=== PATIENT | female | born 1990 | race African-American/Black ===

== ENCOUNTER 2016-05-27 13:04 | Emergency (ER) | payer MEDICAID ==
--- NOTE | 2016-05-27 13:17 | ER Document Report ---
ED Medical Screen (RME) - General Stated Complaint: SHAKY,WEAKNESS Notes: 1.5 hours ago sudden onset weakness, shaky, light headed. denies previous h/o. tolerating PO. urinated this AM, last BM two days ago, usually goes twice weekly denies pain I have greeted and performed a rapid initial assessment of this patient. A comprehensive ED assessment and evaluation of the patient, analysis of test results and completion of the medical decision making process will be conducted by additional ED providers. TRAVEL OUTSIDE OF THE [place] IN LAST 30 DAYS: No - Related Data Allergies/Adverse Reactions: orange Allergy (Severe, Verified 05/27/16 13:15) No Known Drug Allergies Allergy (Verified 05/27/16 13:14) Physical Exam - Vital signs Vitals: Temp Pulse Resp BP Pulse Ox 98.0 F 85 16 125/78 100 05/27/16 13:14 05/27/16 13:14 05/27/16 13:14 05/27/16 13:14 05/27/16 13:14 Course - Vital Signs Vital signs: Temp Pulse Resp BP Pulse Ox 98.0 F 85 16 125/78 100 05/27/16 13:14 05/27/16 13:14 05/27/16 13:14 05/27/16 13:14 05/27/16 13:14
[2016-05-27] MEDS ORDERED: MECLIZINE HCL 25 MG TABLET PO ONE (13:19)
[2016-05-27 13:48] VITALS: BP 127/65
[2016-05-27 14:44] LABS: APPEARANCE,URINE CLEAR; BILIRUBIN,URINE NEGATIVE (NEGATIVE); GLUCOSE, URINE NEGATIVE (NEGATIVE); KETONES,URINE NEGATIVE (NEGATIVE); LEUKOCYTE ESTERASE,URINE NEGATIVE (NEGATIVE); NITRITE,URINE NEGATIVE (NEGATIVE); PROTEIN,URINE NEGATIVE (NEGATIVE); URINE SPECIFIC GRAVITY 1.002; UROBILINOGEN,URINE NEGATIVE mg/dL (<2.0)
--- NOTE | 2016-05-27 14:49 | ER Document Report ---
ED General - General Chief Complaint: Dizziness Stated Complaint: SHAKY,WEAKNESS Mode of Arrival: Ambulatory Information source: Patient Notes: Patient is a 25 yo female who presents with 3 day history of sudden onset, dizziness, light-headed and "shaky" feeling. She describes the dizziness as "spinning" that is worse with head movement to the left. She has no prior history of this, denies any changes in vision, syncope, headache, ear pain, abnormal bleeding, chest pain, SOB, n/v/d or urinary symptoms. She is 2 months post- and was prescribed reglan 3 days ago by her OBGYN to aid in producing breast milk. She states the symptoms started after taking the first dose. TRAVEL OUTSIDE OF THE [place] IN LAST 30 DAYS: No - Related Data Allergies/Adverse Reactions: orange Allergy (Severe, Verified 05/27/16 13:15) No Known Drug Allergies Allergy (Verified 05/27/16 13:14) Past Medical History - Social History Smoking Status: Never Smoker Family History: Reviewed & Not Pertinent Patient has suicidal ideation: No Patient has homicidal ideation: No Renal/ Medical History: Denies: Hx Peritoneal Dialysis Review of Systems - Review of Systems Constitutional: See HPI EENT: No symptoms reported Cardiovascular: No symptoms reported Respiratory: No symptoms reported Gastrointestinal: No symptoms reported Genitourinary: No symptoms reported Female Genitourinary: No symptoms reported Musculoskeletal: No symptoms reported Skin: No symptoms reported Hematologic/Lymphatic: See HPI Neurological/Psychological: See HPI Physical Exam - Vital signs Vitals: Temp Pulse Resp BP Pulse Ox 98.0 F 85 16 125/78 100 05/27/16 13:14 05/27/16 13:14 05/27/16 13:14 05/27/16 13:14 05/27/16 13:14 Interpretation: Normal - Notes Notes: PHYSICAL EXAM: CONSTITUTIONAL: Alert and oriented, well-appearing and in no acute distress. Appears comfortable. Sitting upright in exam bed without difficulty. HENT: Normocephalic, atraumatic. Ear canals without erythema or foreign body, TMs pearly edmond with good bony landmarks. Nares clear without erythema, septal hematoma or deviation, airway patent. Oropharynx clear without erythema, tonsilar exudate or malocclusion. Trachea midline. Uvula midline. Moist mucous membranes. EYES: Pupils equal round and reactive to light, EOM intact. Sclera anicteric, conjunctiva are normal. No entrapment. NECK: supple without lymphadenopathy. ROM intact. HEART: Regular rate and rhythm without murmurs. LUNGS: CTAB and equal. No wheezes, rales or rhonchi. GI: Normactive bowel sounds. Nontender, non-distended. No organomegaly. no CVAT. EXTREMITIES: Normal range of motion, no pitting edema. No cyanosis. Cap Refill < 3 seconds. NEURO: Cranial nerves grossly intact. Normal sensory/motor exams. SKIN: Warm and dry. Normal turgor. No rashes or lesions noted. Course - Re-evaluation Re-evalutation: 05/27/16 14:47 Patient seen and examined. She was given dose of meclizine in triage and states symptoms have completely resolved with this medication. She is currently asymptomatic and feeling well. Reglan has high occurrence of dizziness as a side effect, patient denies any tardive dyskinesia or muscle rigidity. Advised patient to discontinue use of reglan, discuss alternatives with OBGYN. Discharged home in stable condition, follow-up with OBGYN/PMD. Will provide script for meclizine to take as needed. - Vital Signs Vital signs: Temp Pulse Resp BP Pulse Ox 98.0 F 73 16 127/65 H 100 05/27/16 13:14 05/27/16 13:46 05/27/16 13:14 05/27/16 13:46 05/27/16 13:14 - Laboratory Laboratory results interpreted by me: 05/27/16 14:20 Urine Blood MODERATE H Noted mod blood in urine - patient is currently on period. Discharge - Discharge Clinical Impression: Medication adverse effect, Dizziness Condition: Stable Disposition: HOME, SELF-CARE Instructions: Dizziness ([facility]), Meclizine ([facility]) Additional Instructions: FOLLOW-UP CARE: If you have been referred to a physician for follow-up care, call the physician s office for an appointment as you were instructed or within the next two days. If you experience worsening or a significant change in your symptoms, notify the physician immediately or return to the Emergency Department at any time for re-evaluation. Prescriptions: Meclizine HCl [Antivert 25 mg Tablet] 25 mg PO TID PRN #21 tablet PRN Reason: Referrals: SOUSA,KIRSTIN, MD [Primary Care Provider] - Follow up as needed
== END 2016-05-27 15:02 | disposition home or self-care (01) ==
LOC: ER 13:04
DX: R42 Dizziness and giddiness (principal); T45.0X5A Adverse effect of antiallergic and antiemetic drugs, initial encounter; Z91.018 Allergy to other foods
CPT/HCPCS: 81001; 81025; 99284

== ENCOUNTER 2016-10-24 11:39 | Emergency (ER) | payer MEDICAID ==
[2016-10-24 11:44] VITALS: BP 126/88
[2016-10-24] MEDS ORDERED: AMOXICILLIN TRIHYDRATE 500 MG CAPSULE PO ONE (12:27)
--- NOTE | 2016-10-24 12:33 | ER Document Report ---
ED General - General Chief Complaint: Headache Stated Complaint: HEADACHE/WEAKNESS Time Seen by Provider: 10/24/16 12:23 Mode of Arrival: Ambulatory Information source: Patient Notes: 25-year-old female presents with complaints of right earache headache, patient denies any nuchal rigidity, she admits to fevers and chills nausea vomiting Patient denies a sore throat, admits to body aches TRAVEL OUTSIDE OF THE [place] IN LAST 30 DAYS: No - HPI Onset: Other Onset/Duration: Persistent Quality of pain: Achy Severity: Mild Pain Level: 1 Associated symptoms: Earache, Fever, Headache, Nausea, Vomiting Exacerbated by: Denies Relieved by: Denies Similar symptoms previously: No Recently seen / treated by doctor: No - Related Data Allergies/Adverse Reactions: orange Allergy (Severe, Verified 05/27/16 13:15) No Known Drug Allergies Allergy (Verified 05/27/16 13:14) Past Medical History - Social History Smoking Status: Former Smoker Cigarette use (# per day): No Chew tobacco use (# tins/day): No Smoking Education Provided: No Frequency of alcohol use: None Drug Abuse: None Family History: Reviewed & Not Pertinent Patient has suicidal ideation: No Patient has homicidal ideation: No Renal/ Medical History: Denies: Hx Peritoneal Dialysis Review of Systems - Review of Systems Notes: REVIEW OF SYSTEMS: CONSTITUTIONAL : admits to fever EENT: admits to ear ache CARDIOVASCULAR: Denies chest pain. Denies palpitations or racing or irregular heart beat. Denies ankle edema. RESPIRATORY: Denies cough, cold, or chest congestion. Denies shortness of breath, difficulty breathing, or wheezing. GASTROINTESTINAL: admits ot nausea vomtiing GENITOURINARY: Denies difficulty urinating, painful urination, burning, frequency, blood in urine, or discharge. FEMALE GENITOURINARY: Denies vaginal bleeding, heavy or abnormal periods, irregular periods. Denies vaginal discharge or odor. MUSCULOSKELETAL: Denies back or neck pain or stiffness. Denies joint pain or swelling. SKIN: Denies rash, lesions or sores. HEMATOLOGIC : Denies easy bruising or bleeding. LYMPHATIC: Denies swollen, enlarged glands. NEUROLOGICAL: admits ot headache PSYCHIATRIC: Denies anxiety or stress. Denies depression, suicidal ideation, or homicidal ideation. ALL OTHER SYSTEMS REVIEWED AND NEGATIVE. PHYSICAL EXAMINATION: GENERAL: Well-appearing, well-nourished and in no acute distress. HEAD: Atraumatic, normocephalic. EYES: Pupils equal round and reactive to light, extraocular movements intact, conjunctiva are normal. ENT: right ear pustular, no mastoidits, NECK: Normal range of motion, supple without lymphadenopathy LUNGS: Breath sounds clear to auscultation bilaterally and equal. No wheezes rales or rhonchi. HEART: Regular rate and rhythm without murmurs ABDOMEN: Soft, nontender, nondistended abdomen. No guarding, no rebound. No masses appreciated. Female : deferred Musculoskeletal: Normal range of motion, no pitting or edema. No cyanosis. NEUROLOGICAL: Cranial nerves grossly intact. Normal speech, normal gait. Normal sensory, motor exams PSYCH: Normal mood, normal affect. SKIN: Warm, Dry, normal turgor, no rashes or lesions noted. Dictation was performed using [employer] voice recognition software Physical Exam - Vital signs Vitals: Temp Pulse Resp BP Pulse Ox 98.4 F 92 18 126/88 H 98 10/24/16 11:43 10/24/16 11:43 10/24/16 11:43 10/24/16 11:43 10/24/16 11:43 Course - Re-evaluation Re-evalutation: 10/24/16 12:31 Physical examination is consistent with otitis media with which would explain patient's symptoms and presentation. Patient otherwise looks well in no distress. I will treat the patient with antibiotics very close return precautions, patient has no meningeal signs After performing a Medical Screening Examination, I estimate there is LOW risk for ACUTE CORONARY SYNDROME, RESPIRATORY FAILURE, SEPSIS OR MENINGITIS, thus I consider the discharge disposition reasonable. I have reevaluated this patient multiple times and no significant life threatening changes are noted. The patient and I have discussed the diagnosis and risks, and we agree with discharging home with close follow-up. We also discussed returning to the Emergency Department immediately if new or worsening symptoms occur. We have discussed the symptoms which are most concerning (e.g., changing or worsening pain, trouble swallowing or breathing, neck stiffness, fever) that necessitate immediate return. - Vital Signs Vital signs: Temp Pulse Resp BP Pulse Ox 98.4 F 92 18 126/88 H 98 10/24/16 11:43 10/24/16 11:43 10/24/16 11:43 10/24/16 11:43 10/24/16 11:43 Discharge - Discharge Clinical Impression: Otitis media Qualifiers: Otitis media type: suppurative Chronicity: acute Laterality: right Qualified Code(s): H66.001 - Acute suppurative otitis media without spontaneous rupture of ear drum, right ear Fever Qualifiers: Fever type: unspecified Qualified Code(s): R50.9 - Fever, unspecified Headache Qualifiers: Headache type: unspecified Headache chronicity pattern: acute headache Intractability: not intractable Qualified Code(s): R51 - Headache Condition: Stable Disposition: HOME, SELF-CARE Instructions: Headache ([facility]) Additional Instructions: Follow up with your physician tomorrow for further care or return to the ED IMMEDIATELY if symptoms worsen or new concerns occur. If you cannot afford to follow up with your primary care physician a list of low cost clinics have been provided at the end of your discharge papers as well. Prescriptions: Amoxicillin 875 mg PO BID #20 tablet Promethazine HCl [Phenergan 25 mg Tablet] 1 - 2 tab PO Q6H PRN #15 tablet PRN Reason:
== END 2016-10-24 12:43 | disposition home or self-care (01) ==
LOC: ER 11:39
DX: H66.001 Acute suppurative otitis media without spontaneous rupture of ear drum, right ear (principal); R51 Headache; R50.9 Fever, unspecified; R53.1 Weakness; H92.01 Otalgia, right ear; Z87.891 Personal history of nicotine dependence
CPT/HCPCS: 99283

== ENCOUNTER 2016-10-26 16:31 | Emergency (ER) | payer SELFPAY ==
[2016-10-26] MEDS ORDERED: NORMAL SALINE 1000 ML 1,000 ML IV ONE (18:31)
[2016-10-26] MEDS ORDERED: KETOROLAC TROMETHAMINE INJ/PF 30 MG/1 ML SDV IV ONE (18:32)
[2016-10-26] MEDS ORDERED: METOCLOPRAMIDE HCL INJ/PF 10 MG/2 ML SDV IV ONE (18:33)
[2016-10-26] MEDS ORDERED: DIPHENHYDRAMINE HCL 50 MG/ML VIAL IV ONE (18:33)
--- NOTE | 2016-10-26 18:40 | ER Document Report ---
ED General - General Chief Complaint: Headache Stated Complaint: BODY ACHES/POSSIBLE FEVER Time Seen by Provider: 10/26/16 18:12 Notes: 25 yo female c/o fever, chills, vomiting, headache, body ache, n/v, coughing x 3 days. pt was seen in ED 2 days ago for same. Tx for right OM, not improving. pt denies any recent travel, tick bites. works in [employer], ? exposure to sick contacts TRAVEL OUTSIDE OF THE [place] IN LAST 30 DAYS: No - HPI Onset/Duration: Gradual, Persistent, Worse Quality of pain: Achy Pain Level: 4 Associated symptoms: Body/muscle aches, Chills, Nonproductive cough, Earache, Headache, Nausea. denies: Vomiting, Shortness of breath, Sore throat Exacerbated by: Denies Relieved by: Denies Similar symptoms previously: Yes Recently seen / treated by doctor: Yes - ED - Related Data Allergies/Adverse Reactions: orange Allergy (Severe, Verified 10/26/16 16:55) No Known Drug Allergies Allergy (Verified 10/26/16 16:55) Past Medical History - General Information source: Patient - Social History Smoking Status: Never Smoker Frequency of alcohol use: None Drug Abuse: None Lives with: Family Family History: Reviewed & Not Pertinent Patient has suicidal ideation: No Patient has homicidal ideation: No - Medical History Medical History: Negative Renal/ Medical History: Denies: Hx Peritoneal Dialysis Review of Systems - Review of Systems Constitutional: See HPI EENT: See HPI Cardiovascular: No symptoms reported Respiratory: Cough Gastrointestinal: See HPI, Nausea Genitourinary: Frequency. denies: Dysuria Female Genitourinary: No symptoms reported Musculoskeletal: No symptoms reported Skin: No symptoms reported Hematologic/Lymphatic: No symptoms reported Neurological/Psychological: No symptoms reported -: Yes All other systems reviewed and negative Physical Exam - Vital signs Vitals: Temp Pulse Resp BP Pulse Ox 99.6 F 102 H 18 135/72 H 99 10/26/16 16:56 10/26/16 16:56 10/26/16 16:56 10/26/16 16:56 10/26/16 16:56 Interpretation: Normal - General General appearance: Appears well, Alert In distress: None - HEENT Head: Normocephalic, Atraumatic Eyes: Normal Conjunctiva: Normal Extraocular movements intact: Yes Pupils: PERRL External canal: Normal Tympanic membrane: Injected - right Mouth/Lips: Normal Mucous membranes: Normal, Moist Pharynx: Normal Neck: Supple. No: Meningismus - Respiratory Respiratory status: No respiratory distress Chest status: Nontender Breath sounds: Normal Chest palpation: Normal - Cardiovascular Rhythm: Regular Heart sounds: Normal auscultation Murmur: No - Abdominal Inspection: Normal Distension: No distension Bowel sounds: Normal Tenderness: Nontender Organomegaly: No organomegaly - Back Back: Normal, Tender - mild lumbar paraspinal tenderness. no CVAT. No: CVA tenderness - Extremities General upper extremity: Normal inspection, Nontender, Normal color, Normal ROM , Normal temperature General lower extremity: Normal inspection, Nontender, Normal color, Normal ROM , Normal temperature, Normal weight bearing. No: Celeste's sign - Neurological Neuro grossly intact: Yes Cognition: Normal Orientation: AAOx4 [place] Coma Scale Eye Opening: Spontaneous [place] Coma Scale Verbal: Oriented [place] Coma Scale Motor: Obeys Commands [place] Coma Scale Total: 15 Speech: Normal Motor strength normal: LUE, RUE, LLE, RLE Sensory: Normal - Psychological Associated symptoms: Normal affect, Normal mood - Skin Skin Temperature: Warm Skin Moisture: Dry Skin Color: Normal Course - Re-evaluation Re-evalutation: 10/26/16 18:42 pt evaluated. pain med ordered for headache. no meningeal s/s. 10/26/16 19:52 chest xray neg. urine showing SG 1032,leuks sm, WBC 30, mucus. will add urine culture. results reviewed with patient. pt remains nontoxic. vss tolerating po. recommending IV hydration, but pt requesting to go home. agrees to push fluids. will DC home with f/u with primary care or return to ER if unable to tolerate po. pt agreeable with plan - Vital Signs Vital signs: Temp Pulse Resp BP Pulse Ox 99.6 F 102 H 18 135/72 H 99 10/26/16 16:56 10/26/16 16:56 10/26/16 16:56 10/26/16 16:56 10/26/16 16:56 - Laboratory Laboratory results interpreted by me: 10/26/16 19:35 Urine Protein 30 H Urine Ketones TRACE H Urine Urobilinogen 4.0 H Ur Leukocyte Esterase SMALL H Discharge - Discharge Clinical Impression: Viral illness, Headache Condition: Stable Disposition: HOME, SELF-CARE Instructions: Antinausea Medication ([facility]), Fever ([facility]), Headache ([facility]), Toradol Injection ([facility]), Viral Syndrome ([facility]) Additional Instructions: Your symptoms are consistant with a viral illness Your ear infection is resolving continue current medication as prescribed You may take 2 Benadryl tablets (50mg) + 1 phenergan tablet (25mg) if headache returns Follow up with your primary care if symptoms persist Return to ER for any worsening Prescriptions: Promethazine HCl [Phenergan 25 mg Tablet] 25 mg PO Q6H PRN #15 tablet PRN Reason: Forms: Return to Work
--- NOTE | 2016-10-26 19:14 | RADIOLOGY REPORT (SQ) ---
EXAM DESCRIPTION: CHEST PA/LAT COMPLETED DATE/TIME: 10/26/2016 7:04 pm REASON FOR STUDY: cough, fever COMPARISON: None. EXAM PARAMETERS: NUMBER OF VIEWS: two views TECHNIQUE: Digital Frontal and Lateral radiographic views of the chest acquired. RADIATION DOSE: NA LIMITATIONS: none FINDINGS: LUNGS AND PLEURA: No opacities, masses or pneumothorax. No pleural effusion. MEDIASTINUM AND HILAR STRUCTURES: No masses or contour abnormalities. HEART AND VASCULAR STRUCTURES: Heart normal size. No evidence for failure. BONES: No acute findings. HARDWARE: None in the chest. OTHER: No other significant finding. IMPRESSION: NO SIGNIFICANT RADIOGRAPHIC FINDING IN THE CHEST. TECHNICAL DOCUMENTATION: JOB ID: [id number] [employer]- All Rights Reserved
[2016-10-26 19:50] LABS: APPEARANCE,URINE CLOUDY; BILIRUBIN,URINE NEGATIVE (NEGATIVE); GLUCOSE, URINE NEGATIVE (NEGATIVE); KETONES,URINE TRACE mg/dL (NEGATIVE); LEUKOCYTE ESTERASE,URINE SMALL (NEGATIVE); NITRITE,URINE NEGATIVE (NEGATIVE); PROTEIN,URINE 30 mg/dL (NEGATIVE); URINE SPECIFIC GRAVITY 1.032
[2016-10-26] MEDS ORDERED: ONDANSETRON HCL 8 MG TABLET PO ONE (19:53)
[2016-10-26] MEDS ORDERED: KETOROLAC TROMETHAMINE 60 MG/2 ML SDV IM ONE (19:53)
[2016-10-26 20:22] VITALS: BP 119/72
== END 2016-10-26 20:15 | disposition home or self-care (01) ==
LOC: ER 16:31
DX: R51 Headache (principal); R50.9 Fever, unspecified; R05 Cough; R11.0 Nausea; B34.9 Viral infection, unspecified; M79.1 Myalgia; Z91.018 Allergy to other foods
CPT/HCPCS: 99284; 96372; 87086; 81001; 71020; J1885; S0119

== ENCOUNTER 2016-11-17 11:40 | Emergency (ER) | payer BC ==
--- NOTE | 2016-11-17 11:56 | ER Document Report ---
ED Medical Screen (RME) - General Chief Complaint: Abdominal Pain Stated Complaint: ABDOMINAL PAIN Time Seen by Provider: 11/17/16 11:46 Mode of Arrival: Ambulatory Information source: Patient TRAVEL OUTSIDE OF THE [place] IN LAST 30 DAYS: No - HPI Patient complains to provider of: Abdominal pain Notes: 11/17/16 11:55 Patient is a 25-year-old female who presents to the emergency room complaining of upper abdominal pain that is generally and stabbing, dull and achy at times, she reports associated nausea but no vomiting, no diarrhea, no fever or chills, no urinary symptoms, no vaginal discharge or irregular bleeding, her last bowel movement was approximately 4 days ago - Related Data Allergies/Adverse Reactions: orange Allergy (Severe, Verified 11/17/16 11:42) No Known Drug Allergies Allergy (Verified 11/17/16 11:42) Past Medical History Renal/ Medical History: Denies: Hx Peritoneal Dialysis Physical Exam - Vital signs Vitals: Temp Pulse Resp BP Pulse Ox 98.5 F 71 16 121/79 100 11/17/16 11:42 11/17/16 11:42 11/17/16 11:42 11/17/16 11:42 11/17/16 11:42 Course - Vital Signs Vital signs: Temp Pulse Resp BP Pulse Ox 98.5 F 71 16 121/79 100 11/17/16 11:42 11/17/16 11:42 11/17/16 11:42 11/17/16 11:42 11/17/16 11:42
[2016-11-17 12:40] LABS: ABSOLUTE EOSINOPHILS # (AUTO) 0.1 10^3/uL (0.0-0.6); ABSOLUTE LYMPHOCYTES (AUTO) 1.7 10^3/uL (0.5-4.7); ABSOLUTE MONOCYTES (AUTO) 0.3 10^3/uL (0.1-1.4); BASOPHILS % (AUTO) 0.4 % (0-2); EOSINOPHILS % (AUTO) 3.1 % (0-6); HEMATOCRIT 36.9 % (36.0-47.0); HEMOGLOBIN 12.6 g/dL (12.0-15.5); HGB HCT DIFFERENCE 0.9; LYMPHOCYTES % (AUTO) 41.5 % (13-45); MEAN CORPUSCULAR HEMOGLOBIN 28.7 pg (27.0-33.4); MEAN CORPUSCULAR HGB CONC 34.2 g/dL (32.0-36.0); MEAN CORPUSCULAR VOLUME 84 fl (80-97); MONOCYTES % (AUTO) 6.4 % (3-13); RED BLOOD COUNT 4.39 10^6/uL (3.72-5.28); RED CELL DISTRIBUTION WIDTH 13.2 % (11.5-14.0); SEGMENTED NEUTROPHILS % (AUTO) 48.6 % (42-78); WHITE BLOOD COUNT 4.2 10^3/uL (4.0-10.5)
--- NOTE | 2016-11-17 12:42 | ER Document Report ---
ED General - General Mode of Arrival: Ambulatory TRAVEL OUTSIDE OF THE [place] IN LAST 30 DAYS: No - HPI Associated symptoms: Other - see above <EULALIO CHIN - Last Filed: 11/17/16 12:37> <LISSTET NANCE - Last Filed: 11/17/16 15:25> - General Chief Complaint: Abdominal Pain Stated Complaint: ABDOMINAL PAIN Time Seen by Provider: 11/17/16 11:46 Notes: Patient is a 25 year old female who presents to the ED with complaints of intermittent abdominal pain for the past couple weeks. Patient states she has had nausea but denies any vomiting or diarrhea. PAtient also complains of generalized body aches, a cough and congestion for the past month and states she has been on 2 rounds of antibiotics Patient denies a fever. Patient denies any vaginal discharge. (EULALIO CHIN) - Related Data Allergies/Adverse Reactions: orange Allergy (Severe, Verified 11/17/16 11:42) No Known Drug Allergies Allergy (Verified 11/17/16 11:42) Past Medical History - General Information source: Patient Last Menstrual Period: 11/10/2016 - Social History Smoking Status: Never Smoker Chew tobacco use (# tins/day): No Frequency of alcohol use: None Drug Abuse: None Family History: Reviewed & Not Pertinent Renal/ Medical History: Denies: Hx Peritoneal Dialysis <EULALIO CHIN - Last Filed: 11/17/16 12:37> Review of Systems - Review of Systems Constitutional: No symptoms reported. denies: Fever EENT: Nose congestion Cardiovascular: No symptoms reported Respiratory: See HPI, Cough Gastrointestinal: See HPI, Abdominal pain, Nausea. denies: Diarrhea, Vomiting Genitourinary: No symptoms reported Female Genitourinary: No symptoms reported Musculoskeletal: No symptoms reported Skin: No symptoms reported Hematologic/Lymphatic: No symptoms reported Neurological/Psychological: No symptoms reported <EULALIO CHIN - Last Filed: 11/17/16 12:37> Physical Exam - General General appearance: Appears well, Alert In distress: None - HEENT Head: Normocephalic, Atraumatic Eyes: Normal Extraocular movements intact: Yes Pupils: PERRL - Respiratory Respiratory status: No respiratory distress Breath sounds: Normal - Cardiovascular Rhythm: Regular Heart sounds: Normal auscultation Murmur: No - Abdominal Inspection: Normal Bowel sounds: Normal Tenderness: Tender - severe RUQ tenderness to palpation, some LLQ and RLQ tenderness - Back Back: Normal - Extremities General upper extremity: Normal inspection, Normal ROM General lower extremity: Normal inspection, Normal ROM - Neurological Neuro grossly intact: Yes - Psychological Associated symptoms: Normal affect, Normal mood - Skin Skin Temperature: Warm Skin Moisture: Dry Skin Color: Normal <EULALIO CHNI - Last Filed: 11/17/16 12:37> Course - Laboratory Result Diagrams: 11/17/16 12:14 11/17/16 12:14 <EULALIO CHIN - Last Filed: 11/17/16 12:37> - Laboratory Result Diagrams: 11/17/16 12:14 11/17/16 12:14 - Diagnostic Test Radiology reviewed: Image reviewed - KUB shows nothing acute, there is considerable stool in the right colon and transverse colon. <LISSETT NANCE - Last Filed: 11/17/16 15:25> - Vital Signs Vital signs: Temp Pulse Resp BP Pulse Ox 97.6 F 74 17 125/74 100 11/17/16 14:55 11/17/16 14:55 11/17/16 14:55 11/17/16 14:55 11/17/16 14:55 - Laboratory Laboratory results interpreted by me: 11/17/16 11/17/16 12:14 12:42 Glucose 55 L Alkaline Phosphatase 146 H Urine Urobilinogen 4.0 H Ur Leukocyte Esterase TRACE H Urine Ascorbic Acid 20 H Discharge <EULALIO CHIN - Last Filed: 11/17/16 12:37> <LISSETT NANCE - Last Filed: 11/17/16 15:25> - Discharge Clinical Impression: Abdominal pain Qualifiers: Abdominal location: right upper quadrant Qualified Code(s): R10.11 - Right upper quadrant pain Constipation Qualifiers: Constipation type: unspecified constipation type Qualified Code(s): K59.00 - Constipation, unspecified Condition: Stable Disposition: HOME, SELF-CARE Additional Instructions: Abdominal Pain: There are many causes of abdominal pain. Pain can mean a serious problem requiring surgery (such as appendicitis). It can also be an innocent problem that goes away on its own (such as a viral infection). Often, time must pass to determine the cause of pain. The physician does not feel that hospitalization is necessary, at present. Things may change within the next 24 hours. Call the doctor or come back for re- examination if any problems occur, such as: (1) Pain that becomes more severe, steady, or becomes concentrated in one specific area. Also, pain that is more severe with movement or coughing. (2) Vomiting that persists or becomes more frequent. (3) Blood in the vomitus, urine, or bowel movements. Blood in the stool may have a tarry or black appearance. (4) Shaking chills or fever greater than 100 degrees F. (5) The abdomen becomes more distended or swollen. (6) Bowel movements cease. (7) Failure to improve as expected. Constipation: Constipation is a common problem. It is especially likely as you get older. Constipation is a common cause of abdominal pain, but sometimes causes no symptoms at all. Causes of constipation include certain medications, dehydration, diets, inactivity, and low-fiber intake. Rarely, it can be a symptom of underlying disease. The physician has evaluated you for this. Avoid constipation by eating a diet high in fiber, fruits, and vegetables. Drink plenty of liquids. Get regular exercise. If possible, avoid constipating medicines like narcotic pain medication. Some vitamin tablets can cause constipation. Stool softeners may be needed for difficult cases. An excellent stool softener is Konsyl which is available at [employer], [employer] drug store. Just add a teaspoon to a glass of pineapple or orange juice daily or twice a day if needed. Laxatives are useful for occasional constipation. You should use them only when necessary. Too-frequent use can make your bowels dependent on them. Some over the counter laxatives available without prescription are: Milk of Magnesia, 1-2 tablespoons twice a day Dulcolax, 5 mg pill or 10 mg suppository. Citrate of Magnesia, 4-5 ounces a day for a day or two For acute constipation, Fleet's Enemas and Dulcolax suppositories are helpful. Chronic, intermediate use of laxatives or enemas is not a good idea. Your bowel may become dependant on them. You do not need to have a bowel movement every day. Many people do fine with a bowel movement every three or four days. You should call your doctor or return for re-evaluation if you pass blood in the stool, or if you develop fever or increasing abdominal pain. //////////////////////////////////////////////////////////////////////////////// //////////////////////////////////////////////////////////////////////////////// ///////////////// Drink plenty of fluids. Take MiraLAX every day. Follow-up with a local medical doctor if not improving. RETURN TO THE EMERGENCY ROOM IF ANY NEW OR WORSENING SYMPTOMS. Forms: Return to Work Scribe Attestation: 11/17/16 14:35 I personally performed the services described in the documentation, reviewed and edited the documentation which was dictated to the scribe in my presence, and it accurately records my words and actions. (LISSETT NANCE) Scribe Documentation - Scribe Written by Juan Manuel:: juan manuel You, 11/17/2016, 1240 acting as scribe for :: Roberta <EULALIO CHIN - Last Filed: 11/17/16 12:37>
[2016-11-17 13:09] LABS: APPEARANCE,URINE SLIGHTLY-CLOUDY; BILIRUBIN,URINE NEGATIVE (NEGATIVE); GLUCOSE, URINE NEGATIVE (NEGATIVE); KETONES,URINE NEGATIVE (NEGATIVE); LEUKOCYTE ESTERASE,URINE TRACE (NEGATIVE); NITRITE,URINE NEGATIVE (NEGATIVE); PROTEIN,URINE NEGATIVE (NEGATIVE); URINE SPECIFIC GRAVITY 1.021
[2016-11-17 13:09] LABS: ALANINE AMINOTRANSFERASE 19 U/L (9-52); ALBUMIN 4.2 g/dL (3.5-5.0); ALKALINE PHOSPHATASE 146 U/L (38-126); ANION GAP 13 (5-19); ASPARTATE AMINO TRANSFERASE 16 U/L (14-36); BILIRUBIN,DIRECT 0.3 mg/dL (0.0-0.4); BILIRUBIN,TOTAL 0.5 mg/dL (0.2-1.3); BLOOD UREA NITROGEN 12 mg/dL (7-20); CALCIUM 9.4 mg/dL (8.4-10.2); CARBON DIOXIDE 27 mmol/L (22-30); CHLORIDE 104 mmol/L (98-107); CREATININE RESULT 0.81 mg/dL (0.52-1.25); GLUCOSE 55 mg/dL (75-110); LIPASE 64.7 U/L (23-300); POTASSIUM 4.1 mmol/L (3.6-5.0); SODIUM 143.5 mmol/L (137-145); TOTAL PROTEIN 7.5 g/dL (6.3-8.2)
--- NOTE | 2016-11-17 14:23 | RADIOLOGY REPORT (SQ) ---
EXAM DESCRIPTION: U/S ABDOMEN LIMITED W/O DOP COMPLETED DATE/TIME: 11/17/2016 1:44 pm REASON FOR STUDY: RUQ abd pain COMPARISON: None. TECHNIQUE: Dynamic and static grayscale images acquired of the abdomen and recorded on PACS. Additio nal selected color Doppler and spectral images recorded. LIMITATIONS: None. FINDINGS: PANCREAS: No masses. Visualized pancreatic duct normal caliber. LIVER: No masses. Echotexture normal. LIVER VASCULATURE: Normal directional flow of the main portal vein and hepatic veins. GALLBLADDER: No stones. Normal wall thickness. No pericholecystic fluid. ULTRASOUND-DETECTED SCHULTZ'S SIGN: Negative. INTRAHEPATIC DUCTS AND COMMON DUCT: CBD and intrahepatic ducts normal caliber. No filling defects. INFERIOR VENA CAVA: Normal flow. AORTA: No aneurysm. RIGHT KIDNEY: Normal size. Normal echogenicity. No solid or suspicious masses. No hydronephrosis. No calcifications. PERITONEAL AND RIGHT PLEURAL SPACE: No ascites or effusions. OTHER: No other significant findings. IMPRESSION: NORMAL RIGHT UPPER QUADRANT ULTRASOUND. TECHNICAL DOCUMENTATION: JOB ID: [id number] [employer]- All Rights Reserved
[2016-11-17 14:57] VITALS: BP 125/74
--- NOTE | 2016-11-17 15:05 | RADIOLOGY REPORT (SQ) ---
EXAM DESCRIPTION: KUB/ABDOMEN (SINGLE VIEW) COMPLETED DATE/TIME: 11/17/2016 2:51 pm REASON FOR STUDY: abd pain, no BM in 5 days COMPARISON: None. NUMBER OF VIEWS: One view. TECHNIQUE: Supine radiographic image of the abdomen acquired. LIMITATIONS: None. FINDINGS: BOWEL GAS PATTERN: Normal bowel gas pattern. No dilated loops. CALCIFICATIONS: No suspicious calcifications. SOFT TISSUES: No gross mass or suggestion of organomegaly. HARDWARE: An IUD is present. BONES: No acute fracture. No worrisome bone lesions. OTHER: No other significant finding. IMPRESSION: NO RADIOGRAPHIC EVIDENCE FOR ACUTE ABDOMINAL DISEASE. TECHNICAL DOCUMENTATION: JOB ID: [id number] [employer]- All Rights Reserved
[2016-11-17] MEDS ORDERED: MAGNESIUM CITRATE 296 ML BOTTLE PO ONE (15:21)
== END 2016-11-17 15:37 | disposition home or self-care (01) ==
LOC: ER 11:40
DX: R10.11 Right upper quadrant pain (principal); K59.00 Constipation, unspecified; R11.0 Nausea; M79.1 Myalgia; R05 Cough; R09.81 Nasal congestion
CPT/HCPCS: 99284; 36415; 87086; 83690; 84703; 85025; 80053; 81001; 74000; 76705; J3490

== ENCOUNTER 2017-01-03 19:10 | Observation (INO) | payer BC ==
--- NOTE | 2017-01-03 20:26 | ER Document Report ---
ED Medical Screen (RME) - General Chief Complaint: Abdominal Pain Stated Complaint: ABDOMINAL PAIN Time Seen by Provider: 01/03/17 20:25 Notes: Patient has had several days of bilateral lower abdominal pain. Mainly left- sided. She is currently on her menstrual cycle. She denies any chronic medical conditions. She has not had any abdominal surgeries. She does have an IUD. Some nausea. TRAVEL OUTSIDE OF THE [place] IN LAST 30 DAYS: No - Related Data Allergies/Adverse Reactions: orange Allergy (Severe, Verified 01/03/17 19:55) No Known Drug Allergies Allergy (Verified 01/03/17 19:55) Past Medical History - Social History Chew tobacco use (# tins/day): No Frequency of alcohol use: None Drug Abuse: None - Past Medical History Cardiac Medical History: Reports: Hx Hypertension - when Renal/ Medical History: Denies: Hx Peritoneal Dialysis Surgical Hx: Negative - Immunizations Hx Diphtheria, Pertussis, Tetanus Vaccination: No Physical Exam - Vital signs Vitals: Temp Pulse Resp BP Pulse Ox 98.7 F 85 20 130/73 H 99 01/03/17 19:56 01/03/17 19:56 01/03/17 19:56 01/03/17 19:56 01/03/17 19:56 Course - Vital Signs Vital signs: Temp Pulse Resp BP Pulse Ox 98.7 F 85 20 130/73 H 99 01/03/17 19:56 01/03/17 19:56 01/03/17 19:56 01/03/17 19:56 01/03/17 19:56
[2017-01-03 21:12] LABS: APPEARANCE,URINE SLIGHTLY-CLOUDY; BILIRUBIN,URINE NEGATIVE (NEGATIVE); GLUCOSE, URINE NEGATIVE (NEGATIVE); KETONES,URINE NEGATIVE (NEGATIVE); LEUKOCYTE ESTERASE,URINE SMALL (NEGATIVE); NITRITE,URINE NEGATIVE (NEGATIVE); PROTEIN,URINE NEGATIVE (NEGATIVE); URINE SPECIFIC GRAVITY 1.033
[2017-01-03 21:36] LABS: ABSOLUTE LYMPHOCYTES (AUTO) 1.2 10^3/uL (0.5-4.7); ABSOLUTE MONOCYTES (AUTO) 0.5 10^3/uL (0.1-1.4); ABSOLUTE NEUT (AUTO) 11.4 10^3/uL (1.7-8.2); EOSINOPHILS % (AUTO) 0.2 % (0-6); HEMATOCRIT 37.8 % (36.0-47.0); HEMOGLOBIN 12.9 g/dL (12.0-15.5); HGB HCT DIFFERENCE 0.9; LYMPHOCYTES % (AUTO) 9.1 % (13-45); MEAN CORPUSCULAR HEMOGLOBIN 28.6 pg (27.0-33.4); MEAN CORPUSCULAR HGB CONC 34.1 g/dL (32.0-36.0); MEAN CORPUSCULAR VOLUME 84 fl (80-97); MONOCYTES % (AUTO) 3.9 % (3-13); RED CELL DISTRIBUTION WIDTH 14.1 % (11.5-14.0); SEGMENTED NEUTROPHILS % (AUTO) 86.8 % (42-78); WHITE BLOOD COUNT 13.1 10^3/uL (4.0-10.5)
[2017-01-03 21:53] LABS: ALANINE AMINOTRANSFERASE 23 U/L (9-52); ALBUMIN 4.7 g/dL (3.5-5.0); ALKALINE PHOSPHATASE 139 U/L (38-126); ANION GAP 14 (5-19); ASPARTATE AMINO TRANSFERASE 17 U/L (14-36); BILIRUBIN,DIRECT 0.3 mg/dL (0.0-0.4); BILIRUBIN,TOTAL 0.4 mg/dL (0.2-1.3); BLOOD UREA NITROGEN 11 mg/dL (7-20); CALCIUM 9.5 mg/dL (8.4-10.2); CARBON DIOXIDE 25 mmol/L (22-30); CHLORIDE 106 mmol/L (98-107); CREATININE RESULT 0.79 mg/dL (0.52-1.25); GLUCOSE 88 mg/dL (75-110); POTASSIUM 4.3 mmol/L (3.6-5.0); SODIUM 144.7 mmol/L (137-145); TOTAL PROTEIN 7.6 g/dL (6.3-8.2)
--- NOTE | 2017-01-03 22:30 | ER Document Report ---
ED GI/ - General Mode of Arrival: Ambulatory Information source: Patient TRAVEL OUTSIDE OF THE [place] IN LAST 30 DAYS: No - HPI Patient complains to provider of: Abdominal pain Onset: Other - Refer to HPI Notes Similar symptoms previously: No Recently seen / treated by doctor: No <CASTILLO DELCID - Last Filed: 01/04/17 04:03> <GILBERTNNEKASERVANDO - Last Filed: 01/04/17 04:13> - General Chief Complaint: Abdominal Pain Stated Complaint: ABDOMINAL PAIN Time Seen by Provider: 01/03/17 20:25 Notes: Patient is a 26 year old female presenting to the emergency department for abdominal pain. Patient states she has had lower abdominal pain that is worse on the right side for several days. Patient states her pain is sharp and stabbing and also complains of some nausea. Patient is currently on her menstrual cycle and does have an IUD. Patient denies any vaginal discharge, vomiting, diarrhea, or fevers. (CASTILLO DELCID) - Related Data Allergies/Adverse Reactions: orange Allergy (Severe, Verified 01/03/17 19:55) No Known Drug Allergies Allergy (Verified 01/03/17 19:55) Past Medical History - General Information source: Patient - Social History Smoking Status: Never Smoker Cigarette use (# per day): No Chew tobacco use (# tins/day): No Smoking Education Provided: No Frequency of alcohol use: None Drug Abuse: None Family History: None Patient has suicidal ideation: No Patient has homicidal ideation: No - Past Medical History Cardiac Medical History: Reports: Hx Hypertension - when Surgical Hx: Negative - Immunizations Hx Diphtheria, Pertussis, Tetanus Vaccination: No <CASTILLO DELCID - Last Filed: 01/04/17 04:03> Review of Systems - Review of Systems Constitutional: No symptoms reported. denies: Fever Cardiovascular: No symptoms reported. denies: Chest pain Respiratory: No symptoms reported. denies: Short of breath Gastrointestinal: See HPI, Abdominal pain, Nausea. denies: Diarrhea, Vomiting Genitourinary: No symptoms reported. denies: Burning, Dysuria Female Genitourinary: Last menstrual period - now. denies: Vaginal discharge <CASTILLO DELCID - Last Filed: 01/04/17 04:03> Physical Exam - Vital signs Interpretation: Normal <CASTILLO DELCID - Last Filed: 01/04/17 04:03> <SERVANDO VALENCIA - Last Filed: 01/04/17 04:13> - Vital signs Vitals: Temp Pulse Resp BP Pulse Ox 98.7 F 85 20 130/73 H 99 01/03/17 19:56 01/03/17 19:56 01/03/17 19:56 01/03/17 19:56 01/03/17 19:56 - Notes Notes: GENERAL: Alert, interacts well. Mild distress. HEAD: Normocephalic, atraumatic. EYES: Pupils equal, round, and reactive to light. Extraocular movements intact. ENT: Oral mucosa moist, tongue midline. NECK: Full range of motion. Supple. Trachea midline. LUNGS: Clear to auscultation bilaterally, no wheezes, rales, or rhonchi. No respiratory distress. HEART: Regular rate and rhythm. No murmurs, gallops, or rubs. ABDOMEN: Soft, lower quadrant abdominal pain with palpation, right side is worse than left. Non-distended. Bowel sounds present in all 4 quadrants. EXTREMITIES: Moves all 4 extremities spontaneously. No edema. No cyanosis. NEUROLOGICAL: Alert and oriented x3. Normal speech. PSYCH: Normal affect, normal mood. SKIN: Warm, dry, normal turgor. (CASTILLO DELCID) Course - Laboratory Result Diagrams: 01/03/17 20:52 01/03/17 20:52 - Consults Dr. Parada Time consulted: 03:02 Dr. Mcmahon Time consulted: 04:00 <CASTILLO DELCID - Last Filed: 01/04/17 04:03> - Laboratory Result Diagrams: 01/03/17 20:52 01/03/17 20:52 <SERVANDO VALENCIA - Last Filed: 01/04/17 04:13> - Re-evaluation Re-evalutation: 01/04/17 03:38 Re-evaluated patient at this time. Abdominal exam at this time shows increasing tenderness that was equal across the entire lower abdomen. (CASTILLO DELCID) 01/04/17 04:12 CBC shows slight leukocytosis of 13.1, CMP grossly unremarkable, urinalysis shows small leukocyte esterase, this is unlikely to explain her significant abdominal pain, hCG is negative, CT scan of the abdomen and pelvis shows borderline enlarged appendix which is nonopacified, possibility of a displaced IUD into the fundal myometrium. Radiology recommends pelvic sonogram, empirical antibiotic, and/or gynecologic consultation. Due to this reading I did call and discuss with Dr. Parada who states he feels it is unlikely that a displaced IUD would be causing the symptoms however admits it is possible, recommends attempting to remove the IUD, states that if the IUD comes out easily than it is obviously not the problem. States that if it does not come out easily could be embedded into the uterine wall and possibly causing an infection. I did do a pelvic exam was then easily able to remove the IUD by pulling gently on the strings, no cervical tenderness motion tenderness, no evidence of PID. Patient is also less likely of PID as she did have an IUD. At this point I am concerned by her increasing abdominal tenderness that she may have appendicitis that was not yet seen on CT scan. Discussed the patient with Dr. Mcmahon the surgeon on-call who agreed to observe the patient on his service, recommended n.p.o., IV fluids, pain meds and a surgical bed. He will do serial abdominal exams on this patient. On a side note the patient did ask who is going to pay for her IUD to be replaced. Discussed with patient that she can go to the health department where they have discounted and sometimes free family planning services including IUD placement. Discussed with her prior to removing the IUD that I am not able to place IUDs in the emergency department unfortunately. (SERVANDO VALENCIA) - Vital Signs Vital signs: Temp Pulse Resp BP Pulse Ox 98.7 F 85 20 130/73 H 99 01/03/17 19:56 01/03/17 19:56 01/03/17 19:56 01/03/17 19:56 01/03/17 19:56 - Laboratory Laboratory results interpreted by me: 01/03/17 01/03/17 01/03/17 20:52 20:52 20:52 WBC 13.1 H RDW 14.1 H Seg Neutrophils % 86.8 H Lymphocytes % 9.1 L Absolute Neutrophils 11.4 H Alkaline Phosphatase 139 H Urine Urobilinogen 4.0 H Ur Leukocyte Esterase SMALL H Urine Ascorbic Acid 40 H - Consults Dr. Parada Reason for consultation: 01/04/17 03:[address] Parada, [employer] to discuss patient and CT results. He recommends to do a pelvic exam to try and remove the IUD if strings are seen. He states to gently pull on the strings and if the IUD comes out then it was in the right position and if it does not come out then it is in the wrong position. He recommends calling him back if it cannot be removed. (CASTILLO DELCID) Dr. Mcmahon Reason for consultation: 01/04/17 04:[address] Mcmahon to discuss patient and lab work/CT results. He recommends IV fluids, NPO, and will be admitted to the surgical floor. (CASTILLO DELCID) Procedures - Pelvic Exam Pelvic exam Time completed: 03:53 <CASTILLO DELCID - Last Filed: 01/04/17 04:03> <SERVANDO VALENCIA - Last Filed: 01/04/17 04:13> - Pelvic Exam Pelvic exam Notes: 01/04/17 03:53 IUD easily removed with gentle pressure. No cervical motion tenderness. Bloody discharge consistent with menstrual cycle. (CASTILLO DELCID) Discharge <CASTILLO DELCID - Last Filed: 01/04/17 04:03> - Discharge Admitting Provider: Surgicalist - [facility] Unit Admitted: Surgical Floor <SERVANDO VALENCIA - Last Filed: 01/04/17 04:13> - Discharge Clinical Impression: Abdominal pain, acute, bilateral lower quadrant Leukocytosis Qualifiers: Leukocytosis type: lymphocytosis Qualified Code(s): D72.820 - Lymphocytosis ( symptomatic) Condition: Fair Disposition: ADMITTED OBSERVATION Scribe Attestation: 01/04/17 04:13 I personally performed the services described in the documentation, reviewed and edited the documentation which was dictated to the scribe in my presence, and it accurately records my words and actions. (SERVANDO VALENCIA) Scribe Documentation - Scribe Written by Tashia:: Tashia Gonzalez 01/03/2017 23:35 acting as scribe for :: Tim <CASTILLO DELCID - Last Filed: 01/04/17 04:03>
--- NOTE | 2017-01-04 02:52 | RADIOLOGY REPORT (SQ) ---
EXAM DESCRIPTION: CT ABD/PELVIS WITH IV ORAL COMPLETED DATE/TIME: 01/04/2017 1:43 am REASON FOR STUDY: RLQ pain, leukocytosis. COMPARISON: 02/16/2014. TECHNIQUE: CT scan of the abdomen and pelvis performed using helical scanning technique with dynamic intravenous contrast injection. No oral contrast. Images reviewed with lung, soft tissue, and bone windows. Reconstructed coronal and sagittal MPR images reviewed. Delayed images for evaluation of the urinary system also acquired. All images stored on PACS. All CT scanners at this facility use dose modulation, iterative reconstruction, and/or weight based d osing when appropriate to reduce radiation dose to as low as reasonably achievable (ALARA). [facility]: Dose Right [facility]: CareDose [facility]: Dose Right [facility]: Teradose 4D [facility]: Cuídate CONTRAST TYPE AND DOSE: contrast/concentration: Isovue 370.00 mg/ml; Total Contrast Delivered: 86.0 ml; Total Saline Delivered: 68.0 ml RENAL FUNCTION: None required. The patient is less than 50 years old. RADIATION DOSE: Up-to-date CT equipment and radiation dose reduction techniques were employed. CTDIv ol: 10.1 - 10.1 mGy. DLP: 1047 mGy-cm.. LIMITATIONS: None. FINDINGS: LOWER CHEST: No significant findings. No nodules or infiltrates. LIVER: Normal size. No masses. No dilated ducts. SPLEEN: Normal size. No focal lesions. PANCREAS: No masses. No significant calcifications. No adjacent inflammation or peripancreatic fluid collections. Pancreatic duct not dilated. GALLBLADDER: No identified stones by CT criteria. No inflammatory changes to suggest cholecystitis. ADRENAL GLANDS: No significant masses or asymmetry. RIGHT KIDNEY AND URETER: No solid masses. No significant calcifications. No hydronephrosis or hyd roureter. LEFT KIDNEY AND URETER: No solid masses. No significant calcifications. No hydronephrosis or hydr oureter. AORTA AND VESSELS: No aneurysm. No dissection. Renal arteries, SMA, celiac without stenosis. RETROPERITONEUM: No retroperitoneal adenopathy, hemorrhage or masses. BOWEL AND PERITONEAL CAVITY: No masses or inflammatory changes. No free fluid or peritoneal masses. APPENDIX: Borderline prominence within normal limits. Non-opacified appendix is measuring between 0 .5 cm and 0.6 cm in diameter ; the periappendiceal fat is clear. No significant free fluid. PELVIS: No mass. No free fluid. Normal bladder. High IUD likely embedded in the fundal myometrium w ith crossbars within 0.3 cm of the serosa. Mild cystic prominence of bilateral adnexa. ABDOMINAL WALL: No masses. No hernias. BONES: No significant or acute findings. OTHER: No other significant finding. IMPRESSION: 1. Possible IUD embedment in the fundal myometrium; consider pelvic sonogram, empirical antibiotic therapy, and/or gynecology consultation. 2. Borderline prominence of the appendix withi n normal limits. Consider CT surveillance if clinically warranted. TECHNICAL DOCUMENTATION: JOB ID: [id number] Quality ID # [id number]: Final reports with documentation of one or more dose reduction techniques (e.g., Au tomated exposure control, adjustment of the mA and/or kV according to patient size, use of iterative reconstruction technique) 2010 [employer]- All Rights Reserved
[2017-01-04] MEDS ORDERED: DEXTROSE 5%-1/2 NORMAL SALINE 1,000 ML IV ONE (04:05)
[2017-01-04] MEDS ORDERED: MORPHINE SULFATE 10 MG/ML INJ IV PRN (04:05)
[2017-01-04] MEDS ORDERED: RINGERS SOLUTION,LACTATED 1,000 ML IV PRN (06:39)
[2017-01-04] MEDS ORDERED: ONDANSETRON HCL INJ/PF 4 MG/2 ML SDV IV PRN (06:45)
[2017-01-04] MEDS ORDERED: ACETAMINOPHEN 325 MG TABLET PO PRN (06:46)
--- NOTE | 2017-01-04 07:32 | PDOC H&P ---
History of Present Illness Admission Date/PCP: 01/04/17 04:26 Patient complains of: Abdominal pain History of Present Illness: CASTILLO PAYNE is a 26 year old female who presents to [facility] ER with acute abdominal pain that started 2 days prior. Initial episode happened on Monday with spontaneous resolution. It returned acutely yesterday am with progressive worsening to 10/10 prompting ER visit. With fluids, pain meds and removal of her IUD pain improved to 3/10. Noted workup CT in the ER notes her to have inflammation next to her IUD but also borderline appendix in size no signs of inflammation adjacent. Given clinical presentation and physical exam warranted observation. Patient denies any fever chest pain shortness of breath nausea vomiting diarrhea. Past Medical History Cardiac Medical History: Reports: Hypertension - when Past Surgical History Past Surgical History: Reports: None Social History Information Source: Patient Lives with: Family Smoking Status: Never Smoker Frequency of Alcohol Use: None Hx Recreational Drug Use: No Drugs: None Hx Prescription Drug Abuse: No Family History Family History: Hypertension Parental Family History Reviewed: Yes Children Family History Reviewed: Yes Sibling(s) Family History Reviewed.: Yes Medication/Allergy Home Medications: No Home Medications 01/04/17 Allergies/Adverse Reactions: orange Allergy (Severe, Verified 01/03/17 19:55) No Known Drug Allergies Allergy (Verified 01/03/17 19:55) Review of Systems Constitutional: ABSENT: fever(s), headache(s) Nose, Mouth, and Throat: ABSENT: mouth pain, sore throat Cardiovascular: ABSENT: edema Respiratory: ABSENT: dyspnea Gastrointestinal: PRESENT: abdominal pain - focal to umbilicus and trends to superpubic. ABSENT: diarrhea, dysphagia, nausea, vomiting Genitourinary: ABSENT: difficulty urinating Musculoskeletal: ABSENT: back pain Neurological: ABSENT: focal weakness, numbness, paresthesias Physical Exam Vital Signs: Temp Pulse Resp BP Pulse Ox 98.8 F 69 17 108/55 L 100 01/04/17 06:38 01/04/17 06:38 01/04/17 06:38 01/04/17 06:38 01/04/17 06:38 General appearance: PRESENT: no acute distress, well-developed, well-nourished Head exam: PRESENT: atraumatic, normocephalic Eye exam: PRESENT: conjunctiva pink Mouth exam: PRESENT: moist, neck supple Neck exam: ABSENT: lymphadenopathy, tenderness, thyromegaly, tracheal deviation Respiratory exam: PRESENT: clear to auscultation brennan Cardiovascular exam: PRESENT: RRR Pulses: PRESENT: normal dorsalis pedis pul Vascular exam: PRESENT: normal capillary refill GI/Abdominal exam: PRESENT: guarding - focal, tenderness Neurological exam: PRESENT: alert, awake, oriented to person, oriented to place , oriented to time, oriented to situation, CN II-XII grossly intact. ABSENT: motor sensory deficit Results Laboratory Results: 01/03/17 ER CBC WBC 13.1 Hgb 12.9 Hct 37.8 Plt 253 Impressions: Abdomen/Pelvis CT 01/04/17 00:00 IMPRESSION: 1. Possible IUD embedment in the fundal myometrium; consider pelvic sonogram, empirical antibiotic therapy, and/or gynecology consultation. 2. Borderline prominence of the appendix within normal limits. Consider CT surveillance if clinically warranted. Assessment & Plan - Diagnosis (1) Abdominal pain, acute, bilateral lower quadrant Is this a current diagnosis for this admission?: Yes Plan: Given ER workup with CT findings consistent with inflammation around IUD likelihoods hi this is secondary for her pain of the abdomen. Regardless given the size of the appendix borderline normal currently doing serial abdominal exams off antibiotics. Patient has not had any pain meds since she has been to the floor. Currently denying any fever or nausea or vomiting. With any clinical worsening symptoms would prompt operative intervention for possible appendectomy at the time. Continue n.p.o. IV fluids. - Time Time Spent: 30 to 50 Minutes Within: within 36 hours
[2017-01-04 07:50] LABS: ABSOLUTE LYMPHOCYTES (AUTO) 2.5 10^3/uL (0.5-4.7); ABSOLUTE MONOCYTES (AUTO) 0.5 10^3/uL (0.1-1.4); ABSOLUTE NEUT (AUTO) 8.4 10^3/uL (1.7-8.2); BASOPHILS % (AUTO) 0.1 % (0-2); EOSINOPHILS % (AUTO) 0.2 % (0-6); HEMATOCRIT 30.9 % (36.0-47.0); HGB HCT DIFFERENCE 1.5; LYMPHOCYTES % (AUTO) 21.8 % (13-45); MEAN CORPUSCULAR HEMOGLOBIN 28.8 pg (27.0-33.4); MEAN CORPUSCULAR HGB CONC 34.8 g/dL (32.0-36.0); MEAN CORPUSCULAR VOLUME 83 fl (80-97); RED BLOOD COUNT 3.74 10^6/uL (3.72-5.28); RED CELL DISTRIBUTION WIDTH 13.9 % (11.5-14.0); SEGMENTED NEUTROPHILS % (AUTO) 73.9 % (42-78); WHITE BLOOD COUNT 11.4 10^3/uL (4.0-10.5)
[2017-01-04 07:56] LABS: HEMOGLOBIN 10.8 g/dL (12.0-15.5)
[2017-01-04] MEDS ORDERED: SUCCINYLCHOLINE CHLORIDE INJ 200 MG/10 ML VIAL ONE (08:15)
[2017-01-04] MEDS ORDERED: ONDANSETRON HCL INJ/PF 4 MG/2 ML SDV ONE (08:15)
[2017-01-04] MEDS ORDERED: GLYCOPYRROLATE INJ 0.4 MG/2 ML VIAL ONE (08:15)
[2017-01-04] MEDS ORDERED: LIDOCAINE 2% INJ-PF (20 MG/ML) 10 ML AMPUL ONE (08:15)
[2017-01-04] MEDS ORDERED: DEXAMETHASONE SOD PHOSPHATE INJ 4 MG/1 ML VIAL ONE (08:15)
[2017-01-04] MEDS: MORPHINE SULFATE 10 MG/ML INJ IV PRN ×4 (08:50→22:22)
[2017-01-04] MEDS: PANTOPRAZOLE SODIUM 40 MG VIAL IV SCH (09:07)
[2017-01-04] MEDS: CEFOXITIN 1 GM/D5W RTU 1 GM/50 ML RTUPB IV SCH ×2 (09:24→18:19)
[2017-01-04] MEDS ORDERED: LIDOCAINE 1% INJ-PF (10 MG/ML) 30 ML SDV ONE (10:32)
[2017-01-04] MEDS ORDERED: BUPIVACAINE HCL 0.25% /EPINEPHRINE INJ/PF 30 ML SDV ONE (10:32)
[2017-01-04] MEDS ORDERED: FENTANYL CITRATE INJ/PF 250 MCG/5 ML AMPULE ONE (10:50)
[2017-01-04] MEDS ORDERED: MIDAZOLAM 2 MG/2 ML INJ ONE (10:51)
[2017-01-04] MEDS ORDERED: EPHEDRINE SULFATE INJ 50 MG/1 ML AMPULE ONE (10:51)
[2017-01-04] MEDS ORDERED: PROPOFOL INJ 200 MG/20 ML VIAL IV ONE (10:51)
[2017-01-04] MEDS ORDERED: MORPHINE SULFATE 10 MG/ML INJ ONE (10:52)
[2017-01-04] MEDS ORDERED: CEFOXITIN 1 GM/D5W RTU 1 GM/50 ML RTUPB IV ONE (12:29)
[2017-01-04] MEDS ORDERED: FENTANYL CITRATE INJ/PF 100 MCG/2 ML AMPUL IV PRN ×3 (12:51)
[2017-01-04] MEDS ORDERED: DIPHENHYDRAMINE HCL 50 MG/ML VIAL IV PRN (12:51)
[2017-01-04] MEDS ORDERED: PROMETHAZINE HCL INJ 25 MG/1 ML VIAL IV PRN (12:51)
--- NOTE | 2017-01-04 13:26 | Operative Report ---
Operative Report DATE OF SURGERY: 01/04/17 Operative Report: Clinical indications: Mrs. Aranda is a 26-year-old female presents to the ER with acute onset of abdominal pain. Notable that this is been persistently periumbilical but progressive worsening pain in the right lower quadrant today warranted expiration for laparoscopic appendectomy given borderline CT findings of dilated appendix. Consent was obtained from the patient spent competitions risks and benefits for the procedure including but limited to bleeding infection need for operation to which he accepted. Procedure in detail: Patient brought in the operative suite prior to second induction SCDs were placed and functional. After inadequate anesthetic induction and successful intubation she was sterilely prepped and draped in usual manner. Ibrahim catheter was placed in position at the head of the bed. Prior to any incision local was instilled. Robert her abdomen was Via Pino technique. Incision was planned infra umbilical curvilinear. Initial incision sharp continued dissection to the abdominal wall was done bluntly. Retraction of the abdominal wall transfixation was stitched in a large midline incision. Verified entering the abdomen was accomplishable by visual as well as palpable interpretation. A central core was inserted and the peritoneum 50 mmHg was established. Patient was placed in steep Trendelenburg and airplane left. Subsequent trochars were placed as follows 2 a 5 mm suprapubic as well as a 10 mm left lower quadrant. No bleeding was noted of either site. Instrumentation was placed into the abdomen to retract upon the colon and small bowel gently retracting cephalad. Visualization of the appendix was easily accomplished. Dissection of the base was done with blunt dissection to accomplish a window between the mesoappendix and the appendiceal base. 45 mm KRISTEN blue load stapler was used to transect the base of the appendix. 45 mm white load stapler was used to transect the mesoappendix. Minimal oozing was noted from the staple line this is managed using a vascular load stapler 10 mm at the site long staple line. Hemostasis was noted after application. Appendix was removed from the abdomen using an Endo Catch bag. Trocar was reinserted. Cursory inspection of the abdomen noted turbid fluid within the pelvis of which culture was obtained. Pressure inspection of the rest of the abdomen noted normal appearing liver normal abdominal wall stomach small bowel colon and other remaining pelvic organs. Inflammation was noted of the small bowel in the right lower quadrant. Trochars removed under direct visualization noting no bleeding pneumoperitoneum was exsufflated. Sites were then closed in sequence using 4-0 chromic stitch in a running subcuticular manner except given the infraumbilical incision at which the Pino trocar was removed and the fascia was reapproximated with an 0 Vicryl stitch in a figure 8 manner dermis was reapproximated with 3-0 Vicryl and skin was approximated with 4-0 chromic in running subcuticular manner. Sites were dressed with tincture of benzoin Steri- Strips 2 x 2's and Tegaderm. Patient was awoken from anesthesia was successfully extubated and transported back to recovery in stable condition. PREOPERATIVE DIAGNOSIS: Acute appendicitis POSTOPERATIVE DIAGNOSIS: Acute Appendicitis OPERATION: Laparoscopic appendectomy SURGEON: TRINO MARC ANESTHESIA: GA TISSUE REMOVED OR ALTERED: Appendix COMPLICATIONS: None ESTIMATED BLOOD LOSS: 10mls INTRAOPERATIVE FINDINGS: Turbid fluid in pelvis, culture obtained
[2017-01-04] MEDS ORDERED: DIPHENHYDRAMINE HCL 50 MG/ML VIAL ONE (13:42)
[2017-01-04] MEDS ORDERED: KETOROLAC TROMETHAMINE INJ/PF 30 MG/1 ML SDV ONE (15:31)
[2017-01-04 17:12] LABS: ABSOLUTE LYMPHOCYTES (AUTO) 0.8 10^3/uL (0.5-4.7); ABSOLUTE MONOCYTES (AUTO) 0.1 10^3/uL (0.1-1.4); ABSOLUTE NEUT (AUTO) 8.3 10^3/uL (1.7-8.2); HEMATOCRIT 33.3 % (36.0-47.0); HEMOGLOBIN 11.6 g/dL (12.0-15.5); HGB HCT DIFFERENCE 1.5; LYMPHOCYTES % (AUTO) 9.1 % (13-45); MEAN CORPUSCULAR HEMOGLOBIN 28.8 pg (27.0-33.4); MEAN CORPUSCULAR HGB CONC 34.9 g/dL (32.0-36.0); MEAN CORPUSCULAR VOLUME 82 fl (80-97); MONOCYTES % (AUTO) 0.9 % (3-13); RED BLOOD COUNT 4.04 10^6/uL (3.72-5.28); RED CELL DISTRIBUTION WIDTH 14.1 % (11.5-14.0); WHITE BLOOD COUNT 9.2 10^3/uL (4.0-10.5)
--- NOTE | 2017-01-04 18:17 | PDOC DISCHARGE SUMMARY ---
General - Admit/Disc Date/PCP Admission Date/Primary Care Provider: 01/04/17 06:20 Discharge Date: 01/04/17 - Discharge Diagnosis (1) Abdominal pain, acute, bilateral lower quadrant Is this a current diagnosis for this admission?: No (2) Appendicitis, acute Is this a current diagnosis for this admission?: Yes Summary: Patient tolerating a diet, urinating, pain controlled and ambulating. Wishing to go home. Short term follow up. Patient wishing to go back to work with limited duties [employer]. (3) Infection associated with intrauterine device (IUD) Is this a current diagnosis for this admission?: No Summary: CT findings and recommendations by OBGYN warrant 7-10day course of oral antibiotics. IUD was removed in ER. - Additional Information Resuscitation Status: Full Code Discharge Diet: As Tolerated Discharge Activity: No Lifting Over 10 Pounds Home Medications: No Home Medications 01/04/17 History of Present Illness Patient complains of: Abdominal pain History of Present Illness: CASTILLO PAYNE is a 26 year old female who presents to [facility] ER with acute abdominal pain that started 2 days prior. Initial episode happened on Monday with spontaneous resolution. It returned acutely yesterday am with progressive worsening to 10/10 prompting ER visit. With fluids, pain meds and removal of her IUD pain improved to 3/10. Noted workup CT in the ER notes her to have inflammation next to her IUD but also borderline appendix in size no signs of inflammation adjacent. Given clinical presentation and physical exam warranted observation. Patient denies any fever chest pain shortness of breath nausea vomiting diarrhea. Hospital Course Hospital Course: Postoperative course uneventful with tolerance of a diet, ambulation, urination and pain controlled. Home on oral antibiotics for IUD infection. Physical Exam Vital Signs: Temp Pulse Resp BP Pulse Ox 98.3 F 68 12 116/67 98 01/04/17 16:50 01/04/17 16:50 01/04/17 16:50 01/04/17 16:50 01/04/17 17:06 Intake & Output 01/03/17 01/04/17 01/05/17 06:59 06:59 06:59 Intake Total 2561 Output Total 235 Balance 2326 General appearance: PRESENT: no acute distress, well-developed, well-nourished Head exam: PRESENT: atraumatic, normocephalic Mouth exam: PRESENT: moist, neck supple Neck exam: ABSENT: lymphadenopathy, tenderness, thyromegaly, tracheal deviation GI/Abdominal exam: PRESENT: guarding - focal, soft, tenderness - appropriate. ABSENT: rebound, rigid Extremities exam: PRESENT: full ROM. ABSENT: calf tenderness, clubbing, pedal edema Neurological exam: PRESENT: alert, awake, oriented to person, oriented to place , oriented to time, oriented to situation, CN II-XII grossly intact. ABSENT: motor sensory deficit Results Laboratory Results: 01/04/17 17:00 01/04/17 01/04/17 07:29 17:00 WBC 11.4 H 9.2 RBC 3.74 4.04 Hgb 10.8 L D 11.6 L Hct 30.9 L 33.3 L MCV 83 82 MCH 28.8 28.8 MCHC 34.8 34.9 RDW 13.9 14.1 H Plt Count 200 216 Seg Neutrophils % 73.9 90.0 H Lymphocytes % 21.8 9.1 L Monocytes % 4.0 0.9 L Eosinophils % 0.2 0.0 Basophils % 0.1 0.0 Absolute Neutrophils 8.4 H 8.3 H Absolute Lymphocytes 2.5 0.8 Absolute Monocytes 0.5 0.1 Absolute Eosinophils 0.0 0.0 Absolute Basophils 0.0 0.0 Impressions: Abdomen/Pelvis CT 01/04/17 00:00 IMPRESSION: 1. Possible IUD embedment in the fundal myometrium; consider pelvic sonogram, empirical antibiotic therapy, and/or gynecology consultation. 2. Borderline prominence of the appendix within normal limits. Consider CT surveillance if clinically warranted. Qualifiers PATEINT BEING DISCHARGED WITH ANY OF THE FOLLOWING DIAGNOSIS?: No Plan Discharge Plan: Follow up outpatient short term with surgery for postoperative assessment. Complete oral antibiotic course for infected IUD Pain control as needed, alternate NSAID with narcotic while needed Take stool softener with narcotic use. Time Spent: Less than 30 Minutes
[2017-01-04] MEDS: KETOROLAC TROMETHAMINE INJ/PF 30 MG/1 ML SDV IV SCH ×2 (18:18→23:40)
[2017-01-05] MEDS: CEFOXITIN 1 GM/D5W RTU 1 GM/50 ML RTUPB IV SCH ×2 (02:26→10:23)
[2017-01-05] MEDS: KETOROLAC TROMETHAMINE INJ/PF 30 MG/1 ML SDV IV SCH (05:28)
--- NOTE | 2017-01-05 08:56 | PDOC PROGRESS REPORT ---
Subjective Progress Note for:: 01/05/17 Subjective:: Tolerating diet. Some lower abdominal discomfort but much improved from her preoperative symptoms. Wants to go home. Physical Exam Vital Signs: Temp Pulse Resp BP Pulse Ox 98.3 F 76 16 114/51 L 98 01/05/17 00:00 01/05/17 00:00 01/05/17 00:00 01/05/17 00:00 01/05/17 00:00 Intake & Output 01/04/17 01/05/17 01/06/17 06:59 06:59 06:59 Intake Total 3041 Output Total 835 Balance 2206 General appearance: PRESENT: no acute distress, cooperative Respiratory exam: PRESENT: clear to auscultation brennan Cardiovascular exam: PRESENT: RRR GI/Abdominal exam: PRESENT: other - Soft, mild lower abdominal and periumbilical tenderness without peritoneal signs. Minimal right lower quadrant tenderness. Extremities exam: PRESENT: other - No swelling and no tenderness Results Laboratory Results: 01/04/17 17:00 01/04/17 17:00 WBC 9.2 RBC 4.04 Hgb 11.6 L Hct 33.3 L MCV 82 MCH 28.8 MCHC 34.9 RDW 14.1 H Plt Count 216 Seg Neutrophils % 90.0 H Lymphocytes % 9.1 L Monocytes % 0.9 L Eosinophils % 0.0 Basophils % 0.0 Absolute Neutrophils 8.3 H Absolute Lymphocytes 0.8 Absolute Monocytes 0.1 Absolute Eosinophils 0.0 Absolute Basophils 0.0 Impressions: Abdomen/Pelvis CT 01/04/17 00:00 IMPRESSION: 1. Possible IUD embedment in the fundal myometrium; consider pelvic sonogram, empirical antibiotic therapy, and/or gynecology consultation. 2. Borderline prominence of the appendix within normal limits. Consider CT surveillance if clinically warranted. Assessment & Plan - Diagnosis (1) Appendicitis, acute Is this a current diagnosis for this admission?: Yes Plan: Status post laparoscopic appendectomy. Patient looks good. Will discharge patient home. Follow-up next week.
[2017-01-05 09:09] VITALS: BP 117/74
[2017-01-05] MEDS: MORPHINE SULFATE 10 MG/ML INJ IV PRN (09:26)
--- NOTE | 2017-01-05 09:28 | DISCHARGE SUMMARY E ---
Discharge Summary NAME: CASTILLO PAYNE : 1990 AGE: 26Y ADMITTED: 01/04/2017 DISCHARGED: 01/05/2017 DISCHARGE DIAGNOSIS: Appendicitis. PROCEDURE PERFORMED DURING HOSPITALIZATION: Laparoscopic appendectomy performed by Dr. Mcmahon on 01/04/2017. HOSPITAL COURSE: Patient underwent the above mentioned surgery. She did well postoperatively. She has some residual lower abdominal discomfort, but her preoperative symptoms were markedly improved. Her vital signs were stable and her white blood cell count had returned to normal. Patient has now been discharged to home in good condition. She will follow up with [facility] next week. She is encouraged to stay active at home, but avoid strenuous activity. She is to call us for any problems. DISCHARGE MEDICATION: Percocet 1 p.o. q. 4 hours p.r.n. pain. Augmentin BID. DICTATING PHYSICIAN: ALEJANDRA ROBERSON M.D. [id number] PHY#: [id number] ID: [id number] JOB#: [id number] ACCT: [id number] cc:Neville GRACE MD, M.D. FRANK KLANDUCH, M.D. > MTDD
[2017-01-05] MEDS: PANTOPRAZOLE SODIUM 40 MG VIAL IV SCH (10:23)
== END 2017-01-05 11:15 | disposition home or self-care (01) ==
LOC: ER 19:10 → UNDOADMOB 01-04 04:26 → EH 01-04 04:26 → 4N 01-04 05:35 → EH 01-04 05:35 → 4N 01-04 06:20
PROVIDERS: ATTEND Surgery
PROC: 0UPD7HZ Removal of Contraceptive Device from Uterus and Cervix, Via Natural or Artificial Opening (ICD-10-PCS; 2017-01-04)
PROC: 0DTJ4ZZ Resection of Appendix, Percutaneous Endoscopic Approach (ICD-10-PCS; principal; 2017-01-04 11:00)
DX: R10.31 Right lower quadrant pain (principal); R10.32 Left lower quadrant pain; K35.80 Unspecified acute appendicitis; T83.69XA Infection and inflammatory reaction due to other prosthetic device, implant and graft in genital tract, initial encounter; Y83.8 Other surgical procedures as the cause of abnormal reaction of the patient, or of later complication, without mention of misadventure at the time of the procedure; Z30.432 Encounter for removal of intrauterine contraceptive device
CPT/HCPCS: 44970; 58301; 99285; 96374; 36415 ×2; 87205; 87070; 85025 ×2; 81025; 87075; 80053; 81001; 88304 ×2; 74177; G0378 ×2; J2250; J3490 ×3; J1100; J1200; J3010; J0694 ×2; J1885 ×2; J2270 ×2; S0164; J0330; J2405; J7120; J2704; 840

== ENCOUNTER → 2017-07-03 | Outpatient (CLI) | payer BC, OTHER ==
--- NOTE | 2017-07-03 15:40 | RADIOLOGY REPORT (SQ) ---
EXAM DESCRIPTION: CT ABD/PELVIS WITH IV ORAL COMPLETED DATE/TIME: 07/03/2017 3:17 pm REASON FOR STUDY: UNSPEC ABD PAIN (R10.9) R10.9 UNSPECIFIED ABDOMINAL PAIN COMPARISON: CT abdomen pelvis 01/12/2017, 02/16/2014 TECHNIQUE: CT scan of the abdomen and pelvis performed using helical scanning technique with dynamic intravenous contrast injection. No oral contrast. Images reviewed with lung, soft tissue, and bone windows. Reconstructed coronal and sagittal MPR images reviewed. Delayed images for evaluation of the urinary system also acquired. All images stored on PACS. All CT scanners at this facility use dose modulation, iterative reconstruction, and/or weight based d osing when appropriate to reduce radiation dose to as low as reasonably achievable (ALARA). [facility]: Dose Right [facility]: CareDose [facility]: Dose Right [facility]: Teradose 4D [facility]: [employer] CONTRAST TYPE AND DOSE: contrast/concentration: Isovue 370.00 mg/ml; Total Contrast Delivered: 83.0 ml; Total Saline Delivered: 50.0 ml RENAL FUNCTION: None required. The patient is less than 50 years old. RADIATION DOSE: CT Rad equipment meets quality standard of care and radiation dose reduction techniq ues were employed. CTDIvol: 7.3 - 9.8 mGy. DLP: 885 mGy-cm.. LIMITATIONS: None. FINDINGS: LOWER CHEST: No significant findings. No nodules or infiltrates. LIVER: Normal size. No masses. No dilated ducts. SPLEEN: Normal size. No focal lesions. PANCREAS: No masses. No significant calcifications. No adjacent inflammation or peripancreatic fluid collections. Pancreatic duct not dilated. GALLBLADDER: No identified stones by CT criteria. No inflammatory changes to suggest cholecystitis. ADRENAL GLANDS: No significant masses or asymmetry. RIGHT KIDNEY AND URETER: No solid masses. No significant calcifications. No hydronephrosis or hyd roureter. LEFT KIDNEY AND URETER: No solid masses. No significant calcifications. No hydronephrosis or hydr oureter. AORTA AND VESSELS: No aneurysm. No dissection. Renal arteries, SMA, celiac without stenosis. RETROPERITONEUM: No retroperitoneal adenopathy, hemorrhage or masses. BOWEL AND PERITONEAL CAVITY: No masses or inflammatory changes. No free fluid or peritoneal masses. APPENDIX: Surgically absent PELVIS: No mass. No free fluid. Normal bladder. Normal size female pelvic organs. Incidental findi ng of a 2.3 cm left ovarian cyst. IUD has been removed. ABDOMINAL WALL: No masses. No hernias. BONES: No significant or acute findings. OTHER: No other significant finding. IMPRESSION: Post appendectomy. Otherwise unremarkable study. TECHNICAL DOCUMENTATION: JOB ID: [id number] Quality ID # [id number]: Final reports with documentation of one or more dose reduction techniques (e.g., Au tomated exposure control, adjustment of the mA and/or kV according to patient size, use of iterative reconstruction technique) 2010 [employer]- All Rights Reserved Reading location - IP/workstation name: [facility]
== END ==
LOC: RAD 11:25
PROVIDERS: ATTEND Physician Assistant
DX: R10.9 Unspecified abdominal pain (principal)
CPT/HCPCS: 74177

== ENCOUNTER 2018-03-24 00:13 | Emergency (ER) | payer BC, MEDICAID ==
[2018-03-24] MEDS ORDERED: KETOROLAC TROMETHAMINE INJ/PF 30 MG/1 ML SDV IV ONE (00:43)
--- NOTE | 2018-03-24 00:45 | ER Document Report ---
ED General - General Chief Complaint: Abdominal Pain Stated Complaint: ABDOMINAL PAIN Time Seen by Provider: 03/24/18 00:35 Notes: Patient is a 27-year-old female who presents with complaint of intermittent cramping abdominal pain for last week and a half. She said that she had a normal period a few days ago where she had just 3 days of bleeding and the bleeding was very light and irregular. She has since then she continued to have some cramping. She is unsure if it is uterine cramping or something different her abdomen. She says is across her entire abdomen. No vomiting. No diarrhea. No blood in her stool. No fevers. She did take a test today which was negative. No abnormal vaginal discharge. She has a history of appendectomy. No other abdominal surgeries. She takes no medications and is otherwise healthy. TRAVEL OUTSIDE OF THE [place] IN LAST 30 DAYS: No - Related Data Allergies/Adverse Reactions: orange Allergy (Severe, Verified 01/03/17 19:55) No Known Drug Allergies Allergy (Verified 01/03/17 19:55) Past Medical History - Social History Smoking Status: Never Smoker Frequency of alcohol use: None Drug Abuse: None Family History: Hypertension - Past Medical History Cardiac Medical History: Reports: Hx Hypertension - when Renal/ Medical History: Denies: Hx Peritoneal Dialysis - Immunizations Hx Diphtheria, Pertussis, Tetanus Vaccination: No Review of Systems - Review of Systems Notes: My Normal Review Basic REVIEW OF SYSTEMS: CONSTITUTIONAL : Denies fever, chills, or sweats. Denies recent illness. RESPIRATORY: Denies cough, cold, or chest congestion. Denies shortness of breath, difficulty breathing, or wheezing. GASTROINTESTINAL: Crampy abdominal pain. Denies nausea, vomiting, or diarrhea. Denies constipation. Last BM: GENITOURINARY: Denies difficulty urinating, painful urination, burning, frequency, or blood in urine. FEMALE GENITOURINARY: Irregular vaginal bleeding. MUSCULOSKELETAL: Denies neck or back pain or joint pain or swelling. SKIN: Denies rash or skin lesions. NEUROLOGICAL: Denies altered mental status or loss of consciousness. Denies headache. Denies weakness or paralysis or loss of use of either side. Denies problems with gait or speech. Denies sensory or motor loss. ALL OTHER SYSTEMS REVIEWED AND NEGATIVE. Physical Exam - Vital signs Vitals: Temp Pulse Resp BP Pulse Ox 98.7 F 73 16 115/63 99 03/24/18 00:19 03/24/18 00:19 03/24/18 00:19 03/24/18 00:19 03/24/18 00:19 - Notes Notes: General Appearance: Well nourished, alert, cooperative, no acute distress, mild obvious discomfort. Vitals: reviewed, See vital signs table. Head: no swelling or tenderness to the head Eyes: PERRL, EOMI, Conjuctiva clear Mouth: No decreasd moisture Lungs: No wheezing, No rales, No rhonci, No accessory muscle use, good air exchange bilaterally. Heart: Normal rate, Regular rythm, No murmur, no rub Abdomen: Normal BS, soft, No rigidity, some left upper quadrant abdominal tenderness. Remainder of abdomen is completely nontender., No guarding, no rebound, no abdominal masses, no organomegaly Extremities: good pulses in all extremities, no edema. Skin: warm, dry, appropriate color, no rash Neuro: speech clear, oriented x 3, normal affect, responds appropriately to questions. Course - Re-evaluation Re-evalutation: 03/24/18 03:20 Patient is feeling improved with the Toradol. She not having as much admitted cramping. On reevaluation palpation of her abdomen she still has some mild pain to the left central to upper part of her abdomen. Remainder of abdomen is completely nontender. She looks well. Feel she safe to be discharged home. I suspect her pain could be related to uterine cramping being that she had a recent irregular. Just a few days ago when the pain first started and she is continued to have this intermittent cramping across the middle part of her abdomen. Could also be a possible she could have some underlying gastritis based on location of her pain however I think this is less likely being that the crampy nature of her pain is not really consistent with that of a gastritis. I explained her my above-mentioned rationale for pain. I informed her that the exact cause of her pain is still not 100% clear. I do not see any signs of a life-threatening or dangerous cause at this time; however, she should still have with low threshold to return to the ER immediately if she has worsening pain, fevers, heavy bleeding lightheadedness or dizziness, vomiting, or if she feels that she is worsening in any way. Patient agrees with plan will be discharged home. Dictation of this chart was performed using voice recognition software; therefore, there may be some unintended grammatical errors. - Vital Signs Vital signs: Temp Pulse Resp BP Pulse Ox 98.7 F 73 16 115/63 99 03/24/18 00:19 03/24/18 00:19 03/24/18 00:19 03/24/18 00:19 03/24/18 00:19 - Laboratory Result Diagrams: 03/24/18 01:09 03/24/18 01:09 Laboratory results interpreted by me: 03/24/18 03/24/18 01:09 02:46 Seg Neutrophils % 36.4 L Lymphocytes % 56.7 H Urine Urobilinogen 2.0 H Ur Leukocyte Esterase SMALL H Discharge - Discharge Clinical Impression: Abdominal pain, acute Condition: Good Disposition: HOME, SELF-CARE Additional Instructions: The exact cause of your abdominal pain is not 100% clear. I suspect you could be having some pain or cramping related to a irregular menstrual cycle. You may have heavy vaginal bleeding in the next couple days. If your bleeding is very heavy or you feel lightheaded or short of breath please return to the ER for reevaluation. We did blood work that looks for signs of other causes of abdominal pain. Your blood work was normal. Based on your exam I do not think there is anything serious or life-threatening causing her pain at this time; however, we still want to have a low threshold to return to the ER if you have worsening pain, fevers, vomiting, or feel that you are worsening in any way. Some of your pain is over the left upper part of your abdomen which is where your stomach is. Please try taking [id number] medication such as Pepcid as this help if you have any associated gastritis. Please follow-up with us or your primary care doctor in 36 hours if you are still having significant pain. I prescribed a medicine called Toradol. This typically helps with pain especially if it is related to uterine cramping. Do not take other NSAID medicaitons such as Aspirin, Motrin, Ibuprofen, Aleve, or Advil when taking Toradol. It is okay to take Tylenol. Prescriptions: Ketorolac Tromethamine [Toradol 10 mg Tablet] 10 mg PO Q8HP PRN #15 tablet PRN Reason: Referrals: AHSAN MONTALVO PA-C [NO LOCAL MD] - 03/26/18
[2018-03-24 01:17] LABS: ABSOLUTE EOSINOPHILS # (AUTO) 0.1 10^3/uL (0.0-0.6); ABSOLUTE LYMPHOCYTES (AUTO) 2.9 10^3/uL (0.5-4.7); ABSOLUTE MONOCYTES (AUTO) 0.3 10^3/uL (0.1-1.4); ABSOLUTE NEUT (AUTO) 1.8 10^3/uL (1.7-8.2); BASOPHILS % (AUTO) 0.4 % (0-2); EOSINOPHILS % (AUTO) 1.4 % (0-6); HEMATOCRIT 36.4 % (36.0-47.0); HEMOGLOBIN 12.3 g/dL (12.0-15.5); LYMPHOCYTES % (AUTO) 56.7 % (13-45); MEAN CORPUSCULAR HEMOGLOBIN 28.7 pg (27.0-33.4); MEAN CORPUSCULAR HGB CONC 33.8 g/dL (32.0-36.0); MEAN CORPUSCULAR VOLUME 85 fl (80-97); MONOCYTES % (AUTO) 5.1 % (3-13); PLATELET COUNT 252 10^3/uL (150-450); RED BLOOD COUNT 4.29 10^6/uL (3.72-5.28); SEGMENTED NEUTROPHILS % (AUTO) 36.4 % (42-78); TOTAL CELLS COUNTED % (AUTO) 100 %
[2018-03-24 01:31] LABS: ALANINE AMINOTRANSFERASE 14 U/L (9-52); ALBUMIN 3.8 g/dL (3.5-5.0); ALKALINE PHOSPHATASE 119 U/L (38-126); ANION GAP 11 (5-19); ASPARTATE AMINO TRANSFERASE 19 U/L (14-36); BILIRUBIN,DIRECT 0.3 mg/dL (0.0-0.4); BILIRUBIN,TOTAL 0.5 mg/dL (0.2-1.3); BLOOD UREA NITROGEN 12 mg/dL (7-20); CALCIUM 8.6 mg/dL (8.4-10.2); CARBON DIOXIDE 24 mmol/L (22-30); CHLORIDE 107 mmol/L (98-107); GLUCOSE 99 mg/dL (75-110); LIPASE 50.1 U/L (23-300); TOTAL PROTEIN 6.7 g/dL (6.3-8.2)
[2018-03-24 03:09] LABS: APPEARANCE,URINE SLIGHTLY-CLOUDY; BILIRUBIN,URINE NEGATIVE (NEGATIVE); COLOR,URINE YELLOW; GLUCOSE, URINE NEGATIVE (NEGATIVE); KETONES,URINE NEGATIVE (NEGATIVE); LEUKOCYTE ESTERASE,URINE SMALL (NEGATIVE); NITRITE,URINE NEGATIVE (NEGATIVE); PROTEIN,URINE NEGATIVE (NEGATIVE); URINE SPECIFIC GRAVITY 1.019
[2018-03-24 03:38] VITALS: BP 110/61
== END 2018-03-24 03:38 | disposition home or self-care (01) ==
LOC: ER 00:13
DX: R10.84 Generalized abdominal pain (principal); R10.812 Left upper quadrant abdominal tenderness; N93.9 Abnormal uterine and vaginal bleeding, unspecified; Z90.49 Acquired absence of other specified parts of digestive tract; Z91.018 Allergy to other foods
CPT/HCPCS: 99284; 96374; 36415; 83690; 84703; 85025; 80053; 81001; J1885

== ENCOUNTER 2018-07-10 19:41 | Emergency (ER) | payer BC ==
[2018-07-10] MEDS ORDERED: FAMOTIDINE INJ/PF 20 MG/2 ML SDV IV ONE (21:15)
[2018-07-10] MEDS ORDERED: SUCRALFATE 1 GM TABLET PO ONE (21:15)
[2018-07-10] MEDS ORDERED: ONDANSETRON HCL INJ/PF 4 MG/2 ML SDV IV ONE (21:15)
[2018-07-10] MEDS ORDERED: RINGERS SOLUTION,LACTATED 1,000 ML IV ONE (21:15)
[2018-07-10] MEDS ORDERED: KETOROLAC TROMETHAMINE INJ/PF 30 MG/1 ML SDV IV ONE (21:15)
[2018-07-10 21:53] LABS: APPEARANCE,URINE SLIGHTLY-CLOUDY; BILIRUBIN,URINE NEGATIVE (NEGATIVE); COLOR,URINE YELLOW; GLUCOSE, URINE NEGATIVE (NEGATIVE); KETONES,URINE NEGATIVE (NEGATIVE); LEUKOCYTE ESTERASE,URINE TRACE (NEGATIVE); NITRITE,URINE NEGATIVE (NEGATIVE); PROTEIN,URINE NEGATIVE (NEGATIVE); URINE SPECIFIC GRAVITY 1.024
[2018-07-10 22:18] LABS: ABSOLUTE EOSINOPHILS # (AUTO) 0.1 10^3/uL (0.0-0.6); ABSOLUTE LYMPHOCYTES (AUTO) 3.3 10^3/uL (0.5-4.7); ABSOLUTE MONOCYTES (AUTO) 0.4 10^3/uL (0.1-1.4); ABSOLUTE NEUT (AUTO) 2.7 10^3/uL (1.7-8.2); BASOPHILS % (AUTO) 0.3 % (0-2); EOSINOPHILS % (AUTO) 1.5 % (0-6); HEMATOCRIT 33.2 % (36.0-47.0); HEMOGLOBIN 11.3 g/dL (12.0-15.5); LYMPHOCYTES % (AUTO) 50.5 % (13-45); MEAN CORPUSCULAR HEMOGLOBIN 28.5 pg (27.0-33.4); MEAN CORPUSCULAR HGB CONC 34.2 g/dL (32.0-36.0); MEAN CORPUSCULAR VOLUME 83 fl (80-97); MONOCYTES % (AUTO) 6.5 % (3-13); PLATELET COUNT 255 10^3/uL (150-450); RED BLOOD COUNT 3.98 10^6/uL (3.72-5.28); RED CELL DISTRIBUTION WIDTH 13.7 % (11.5-14.0); SEGMENTED NEUTROPHILS % (AUTO) 41.2 % (42-78); TOTAL CELLS COUNTED % (AUTO) 100 %; WHITE BLOOD COUNT 6.5 10^3/uL (4.0-10.5)
[2018-07-10 22:37] LABS: ALANINE AMINOTRANSFERASE 26 U/L (9-52); ALKALINE PHOSPHATASE 128 U/L (38-126); ANION GAP 9 (5-19); ASPARTATE AMINO TRANSFERASE 18 U/L (14-36); BILIRUBIN,DIRECT 0.1 mg/dL (0.0-0.4); BILIRUBIN,TOTAL 0.3 mg/dL (0.2-1.3); BLOOD UREA NITROGEN 13 mg/dL (7-20); CALCIUM 9.4 mg/dL (8.4-10.2); CARBON DIOXIDE 25 mmol/L (22-30); CHLORIDE 106 mmol/L (98-107); GLUCOSE 90 mg/dL (75-110); POTASSIUM 3.9 mmol/L (3.6-5.0); SODIUM 139.8 mmol/L (137-145); TOTAL PROTEIN 7.1 g/dL (6.3-8.2)
--- NOTE | 2018-07-10 22:49 | ER Document Report ---
ED General - General Chief Complaint: Headache Stated Complaint: HEADACHE Time Seen by Provider: 07/10/18 20:37 Primary Care Provider: SHIRA VARGAS PA-C [Primary Care Provider] - Follow up as needed Notes: Patient is a 27-year-old female presents the emergency department for generalized left upper abdominal pain and headache intermittently for the last 2 weeks. Patient states she also feels nauseated but is denying any vomiting or diarrhea. Patient is denying any dysuria or vaginal discharge. Patient states her headaches are around her forehead area and typically go away with Tylenol or Motrin which is not taking any medications today. Patient states she presents to the emergency department more for the pain in her left upper abdominal region and nausea and stated she wanted to tell staff about her headache because she currently has 1. Patient is also stating that her left arm has been hurting for the last couple of weeks. Patient states she had a Nexplanon implant on January 2017. States she called her MACHINE MAINTENANCE MECHANIC for removal and states she is to follow-up with them next week. Past medical history: None Medications: None Allergies: [place] juice Surgical history: Appendectomy Last menstrual period: Currently TRAVEL OUTSIDE OF THE [place] IN LAST 30 DAYS: No - Related Data Allergies/Adverse Reactions: orange Allergy (Severe, Verified 07/10/18 19:48) No Known Drug Allergies Allergy (Verified 07/10/18 19:48) Past Medical History - General Information source: Patient - Social History Smoking Status: Never Smoker Family History: Hypertension Patient has suicidal ideation: No Patient has homicidal ideation: No - Past Medical History Cardiac Medical History: Reports: Hx Hypertension - when Renal/ Medical History: Denies: Hx Peritoneal Dialysis Past Surgical History: Reports: Hx Appendectomy - Immunizations Hx Diphtheria, Pertussis, Tetanus Vaccination: No Review of Systems - Review of Systems Constitutional: No symptoms reported EENT: No symptoms reported Cardiovascular: No symptoms reported Respiratory: No symptoms reported Gastrointestinal: See HPI Genitourinary: See HPI Female Genitourinary: See HPI Musculoskeletal: No symptoms reported Skin: No symptoms reported Hematologic/Lymphatic: No symptoms reported Neurological/Psychological: See HPI Physical Exam - Vital signs Vitals: Temp Pulse Resp BP Pulse Ox 98.1 F 80 20 140/82 H 100 07/10/18 19:50 07/10/18 19:50 07/10/18 19:50 07/10/18 19:50 07/10/18 19:50 - Notes Notes: GENERAL: Alert, interacts well. No acute distress. HEAD: Normocephalic, atraumatic. No frontal or maxillary sinus tenderness noted EYES: Pupils equal, round, and reactive to light. Extraocular movements intact. ENT: Oral mucosa moist, tongue midline. NECK: Full range of motion. Supple. Trachea midline. No nuchal rigidity noted LUNGS: Clear to auscultation bilaterally, no wheezes, rales, or rhonchi. No resp iratory distress. HEART: Regular rate and rhythm. No murmur ABDOMEN: Soft, Non-distended. Bowel sounds present in all 4 quadrants. No McBurney's point tenderness, no Villanueva sign noted. Minor tenderness noted left upper quadrant upon deep palpation. EXTREMITIES: Moves all 4 extremities spontaneously. No edema, normal radial and dorsalis pedis pulses bilaterally. No cyanosis. 5 out of 5 strength all 4 extremities BACK: no cervical, thoracic, lumbar midline tenderness. No saddle anesthesia, normal distal neurovascular exam. No CVA tenderness noted bilaterally NEUROLOGICAL: Alert and oriented x3. Normal speech. cranial nerves II through XII grossly intact PSYCH: Normal affect, normal mood. SKIN: Warm, dry, normal turgor. No rashes or lesions noted. Course - Re-evaluation Re-evalutation: 07/10/18 22:47 Patient's labs reveal no signs of leukocytosis, no signs of electrolyte abnormalities, no signs of urinary tract infection. After treatments in the emergency department patient states she overall feels a lot better. Discussed use of at home acid indigestion medications and to follow-up with primary care provider and MACH[employer]INTENANCE [employer]CH[employer]IC for Nexplanon removal. Patient voices understanding is stable for discharge. - Vital Signs Vital signs: Temp Pulse Resp BP Pulse Ox 98.1 F 80 20 140/82 H 100 07/10/18 19:50 07/10/18 19:50 07/10/18 19:50 07/10/18 19:50 07/10/18 19:50 - Laboratory Result Diagrams: 07/10/18 22:07 07/10/18 22:07 Laboratory results interpreted by me: 07/10/18 07/10/18 07/10/18 21:39 22:07 22:07 Hgb 11.3 L Hct 33.2 L Seg Neutrophils % 41.2 L Lymphocytes % 50.5 H Alkaline Phosphatase 128 H Urine Blood MODERATE H Urine Urobilinogen 4.0 H Ur Leukocyte Esterase TRACE H Urine Ascorbic Acid 40 H Discharge - Discharge Clinical Impression: Nausea Headache Qualifiers: Headache type: unspecified Headache chronicity pattern: acute headache Intractability: not intractable Qualified Code(s): R51 - Headache Abdominal pain Qualifiers: Abdominal location: left upper quadrant Qualified Code(s): R10.12 - Left upper quadrant pain Condition: Stable Disposition: HOME, SELF-CARE Instructions: Abdominal Pain ([facility]), Antinausea Medication ([facility]), Use of Diphenhydramine, Gastritis ([facility]), Headache ([facility]), Nausea or Vomiting, Nonspecific ([facility]), Toradol Injection ([facility]) Additional Instructions: You have been seen and treated in the emergency department for generalized headache, and left upper abdominal pain. Your labs reveal no signs of abnormalities. We have treated you with antinausea medication and acid indigestion medication. Please take prescription medications as prescribed and follow-up with your primary care provider in the next 24-48 hours. Please follow-up with your MACHINE MAINTENANCE MECHANIC for Nexplanon removal. Please return to the emergency room for any other concerning symptoms. Prescriptions: Famotidine [Pepcid 40 mg Tablet] 40 mg PO BID #60 tablet Ondansetron [Zofran Odt 4 mg Tablet] 1 - 2 tab PO Q4H PRN #15 tab.rapdis PRN Reason: For Nausea/Vomiting Forms: Return to Work Referrals: SHIRA VARGAS PA-C [Primary Care Provider] - Follow up as needed
[2018-07-11 00:50] VITALS: BP 119/71
== END 2018-07-11 00:52 | disposition home or self-care (01) ==
LOC: ER 19:41
DX: R11.0 Nausea (principal); R10.12 Left upper quadrant pain; R51 Headache
CPT/HCPCS: 99284; 96361; 96374; 96375; 36415; 87086; 83690; 85025; 81025; 87088; 80053; 81001; J1885; J2405; J7120; S0028

== ENCOUNTER 2018-11-08 14:39 | Emergency (ER) | payer BC ==
[2018-11-08 15:04] VITALS: BP 124/84
[2018-11-08] MEDS ORDERED: DEXAMETHASONE SOD PHOS INJ 10 MG/1 ML VIAL IM ONE (15:49)
[2018-11-08] MEDS ORDERED: KETOROLAC TROMETHAMINE 60 MG/2 ML SDV IM ONE (15:49)
--- NOTE | 2018-11-08 15:52 | ER Document Report ---
ED Extremity Problem, Upper - General Chief Complaint: Shoulder Pain Stated Complaint: SHOULDER PAIN Time Seen by Provider: 11/08/18 15:41 Primary Care Provider: SHIRA VARGAS PA-C [Primary Care Provider] - Follow up as needed Mode of Arrival: Ambulatory Information source: Patient Notes: 27-year-old female presents to ED for chronic shoulder pain. She states she had a MRI last year and they told she had some arthritis and some degeneration. There is started her on steroid pills and anti-inflammatories and they did not work so they gave her a steroid shot in the joint. She states that helped for a while and she was supposed to go back to the orthopedic every 6 weeks to get a shot but she did not go back. She states it started hurting again at the [facility] of the year and now she cannot get into the legal recovery specialist until November or December and her pain is getting worse. She is alert and oriented respirations regular and unlabored speaking in full sentences TRAVEL OUTSIDE OF THE [place] IN LAST 30 DAYS: No - HPI Patient complains to provider of: Left, Shoulder Onset: Other - Chronic Recent injury: No Quality of pain: Sharp Severity of pain: Moderate Pain Level: 2 Context: Other - Chronic Associated symptoms: None Exacerbated by: Movement, Exertion Relieved by: Rest, Positioning Similar symptoms previously: Yes Recently seen / treated by doctor: No - Related Data Allergies/Adverse Reactions: orange Allergy (Severe, Verified 07/10/18 19:48) No Known Drug Allergies Allergy (Verified 07/10/18 19:48) Past Medical History - General Information source: Patient - Social History Smoking Status: Former Smoker Chew tobacco use (# tins/day): No Frequency of alcohol use: None Drug Abuse: None Lives with: Alone Family History: Hypertension Patient has suicidal ideation: No Patient has homicidal ideation: No - Past Medical History Cardiac Medical History: Reports: Hx Hypertension - when Pulmonary Medical History: Reports: None EENT Medical History: Reports: None Neurological Medical History: Reports: None Endocrine Medical History: Reports: None Renal/ Medical History: Reports: None Malignancy Medical History: Reports: None GI Medical History: Reports: None Musculoskeletal Medical History: Reports Hx Arthritis, Reports Hx Musculoskeletal Trauma Skin Medical History: Reports None Psychiatric Medical History: Reports: None Traumatic Medical History: Reports: None Infectious Medical History: Reports: None Past Surgical History: Reports: Hx Appendectomy - Immunizations Hx Diphtheria, Pertussis, Tetanus Vaccination: No Review of Systems - Review of Systems Constitutional: No symptoms reported EENT: No symptoms reported Cardiovascular: No symptoms reported Respiratory: No symptoms reported Gastrointestinal: No symptoms reported Genitourinary: No symptoms reported Female Genitourinary: No symptoms reported Musculoskeletal: Joint pain - Chronic left shoulder pain, Muscle pain, Muscle stiffness. denies: Joint swelling Skin: No symptoms reported Hematologic/Lymphatic: No symptoms reported Neurological/Psychological: No symptoms reported -: Yes All other systems reviewed and negative Physical Exam - Vital signs Vitals: Temp Pulse Resp BP Pulse Ox 98.4 F 70 16 124/84 96 11/08/18 15:03 11/08/18 15:03 11/08/18 15:03 11/08/18 15:03 11/08/18 15:03 Interpretation: Normal - General General appearance: Appears well, Alert - HEENT Head: Normocephalic, Atraumatic Eyes: Normal Pupils: PERRL - Respiratory Respiratory status: No respiratory distress Chest status: Nontender Breath sounds: Normal Chest palpation: Normal - Cardiovascular Rhythm: Regular Heart sounds: Normal auscultation Murmur: No - Abdominal Inspection: Normal Distension: No distension Bowel sounds: Normal Tenderness: Nontender Organomegaly: No organomegaly - Back Back: Normal, Nontender - Extremities General upper extremity: Normal inspection, Normal color, Normal ROM, Normal temperature General lower extremity: Normal inspection, Nontender, Normal color, Normal ROM, Normal temperature, Normal weight bearing. No: Celeste's sign Shoulder: Tender. No: Abrasion, Deformity, Dislocation, Ecchymosis, Instability, Laceration, Limited ROM - Neurological Neuro grossly intact: Yes Cognition: Normal Orientation: AAOx4 [place] Coma Scale Eye Opening: Spontaneous [place] Coma Scale Verbal: Oriented [place] Coma Scale Motor: Obeys Commands [place] Coma Scale Total: 15 Speech: Normal Motor strength normal: LUE, RUE, LLE, RLE Sensory: Normal - Psychological Associated symptoms: Normal affect, Normal mood - Skin Skin Temperature: Warm Skin Moisture: Dry Skin Color: Normal Course - Re-evaluation Re-evalutation: 11/08/18 21:38 Patient was ordered a UA so I could determine if she was or not. After it was determined she was not patient was treated with Toradol and Decadron for her chronic shoulder pain. She states she had been going to orthopedics and getting steroid injections but she is not able to get one for a while as the orthopedic does not have an opening. Patient was agreeable to this treatment plan and then she was discharged home. Patient was given instructions to use ibuprofen Tylenol and range of motion exercises to her shoulder. Patient verbalized understanding and agreement with this and was discharged home. - Vital Signs Vital signs: Temp Pulse Resp BP Pulse Ox 98.4 F 70 16 124/84 96 11/08/18 15:03 11/08/18 15:03 11/08/18 15:03 11/08/18 15:03 11/08/18 15:03 Discharge - Discharge Clinical Impression: Exacerbation of chronic left shoulder pain Condition: Stable Disposition: HOME, SELF-CARE Additional Instructions: Chronic Pain Control Stress, inactivity, and depression make pain more severe regardless of the cause of the pain. Stress and poor physical condition can cause pain such as headaches and backache. Relaxation: Rest in a quiet place with your eyes closed for 20 minutes twice daily. Concentrate on a pleasant image, or simply "feel" your breathing. Clear your mind. Stress management: Deal with your "stressors." Either take action, or eliminate the stressor from your life. Don't let things hang over you. Accept those things you can't change. Nutrition: Eat small, balanced meals -- don't skip, don't overeat. Meals should be high-carbohydrate, low-sugar, low-fat. Exercise: Exercise helps painful conditions and eases stress. Get 30 minutes of moderate exercise, five days a week. Do an activity that does not flare your pain. Precautions: Pain which continues to disrupt daily activities, or which changes in nature, requires a medical evaluation. Pain Clinic referral is available. We do not manage chronic pain in the Emergency Department. We will try to appropriately help you through an acute flare of your chronic painful condition, but for on-going chronic pain that does not improve, you will need to see your private doctor or marine painter. We do not provide repeated medication management of chronic painful conditions. If you wish, we can provide the name of local pain management physicians. Exercise Program for the Shoulder Since the shoulder moves in so many directions, the joint attachment is weak. Muscles provide most of the stability to the shoulder. You must exercise your shoulder to prevent painful instability or stiffening. PASSIVE - These may be begun within a few days of the injury. While standing, lean forward, allowing the arm to hang down towards the floor. Move the arm in small circles while slowly twisting your chest towards and away from the hanging arm. Do this for one minute. ACTIVE - These may be performed when the doctor gives permission. Begin with the arms at the sides. Raise the arms forward (shoulder's width apart) unt il they reach shoulder level. Then slowly swing both arms back until they are aiming straight out away from each other. Then bring them forward again, and finally, lower them to your sides. Repeat 20 to 30 times. As you improve, put weights in your hands for the exercise. Start with one pound, and work up to 10 pounds. Never use more than is comfortable. Athletes may work up to 30 pounds. Toradol Injection You have been given an injection of ketorolac tromethamine (Toradol). This is an excellent, safe drug for pain control. It also has potent antiinflammatory action. You should have significant pain relief within about one hour. Toradol is not addicting and is non-sedating. It does not interfere with driving or work. Call or return if you develop itching, hives, shortness of breath, or rash. STEROID MEDICATION: You have been given an injection of medicine of the cortisone/steroid class. This medication is used to control inflammation or allergy. It is often continued as a pill for a short period of time, until the acute process subsides. There are usually no side effects from short-term use of cortisone-like medications. Some persons feel an increased sense of well-being and are not sleepy at bedtime. Long-term use of cortisone medications is best avoided, unless required for a severe condition. If your condition does not remit, or relapses after the course of corticosteroid medication, you should consult your physician. Ice Packs Apply ice packs frequently against the painful area. Many different schedules are recommended, such as "20 minutes on, 20 minutes off" or "one hour ice, two hours rest." If you need to work, you may need to go longer between ice treatments. You should plan to have the area ice packed AT LEAST one fourth of the time. The ice should be applied over the wrap, tape, or splint, or over a layer of cloth -- not directly against the skin. Some ice bags have a built-in cloth and can be put directly on the skin. Warm Packs After approximately two days, apply gentle heat (such as a heating pad or hot water bottle) for about 20 to 30 minutes about every two hours -- at least four times daily. Warmth and elevation will help you make a more rapid recovery, and will ease the pain considerably. Do not use HOT heat, and never apply heat for longer than 30 minutes. The continuous heat can invisibly damage skin and muscles -- even when no burn is seen on the surface. Damaged muscles can make you MORE sore. FOLLOW-UP CARE: If you have been referred to a physician for follow-up care, call the physicians office for an appointment as you were instructed or within the next two days. If you experience worsening or a significant change in your symptoms, notify the physician immediately or return to the Emergency Department at any time for re-evaluation. Forms: Return to Work Referrals: SHIRA VARGAS PA-C [Primary Care Provider] - Follow up as needed
== END 2018-11-08 16:33 | disposition home or self-care (01) ==
LOC: ER 14:39
DX: M25.512 Pain in left shoulder (principal); G89.29 Other chronic pain; Z87.891 Personal history of nicotine dependence; I10 Essential (primary) hypertension
CPT/HCPCS: 99283; 96372; 81025; J1885; J1100

== ENCOUNTER 2019-09-25 04:25 | Emergency (ER) | payer BC ==
--- NOTE | 2019-09-25 07:10 | ER Document Report ---
HPI - HPI Time Seen by Provider: 09/25/19 06:41 Pain Level: 3 Context: Patient is a 28-year-old female presents emergency department with a chief complaint of sore throat. Patient states that her sore throat started about 5 days ago. States that 2 days ago, her sore throat got worse. Denies any shortness of breath or difficulty breathing. Denies any cough. Patient also reports body aches. - CONSTITUTIONAL Constitutional: DENIES: Fever, Chills - EENT EENT: REPORTS: Sore Throat. DENIES: Nasal Drainage-Clear, Nasal Drainage- Purulent, Congestion - NEURO Neurology: DENIES: Weakness - CARDIOVASCULAR Cardiovascular: DENIES: Chest pain - RESPIRATORY Respiratory: DENIES: Trouble Breathing, Coughing - GASTROINTESTINAL Gastrointestinal: DENIES: Abdominal Pain, Nausea, Patient vomiting - REPRODUCTIVE Reproductive: DENIES: : - MUSCULOSKELETAL Musculoskeletal: REPORTS: Extremity pain - body aches - DERM Skin Color: Normal Skin Problems: None Past Medical History - General Information source: Patient - Social History Smoking Status: Never Smoker Frequency of alcohol use: None Drug Abuse: None Family History: Hypertension Patient has homicidal ideation: No - Past Medical History Cardiac Medical History: Reports: Hx Hypertension - when Renal/ Medical History: Denies: Hx Peritoneal Dialysis Musculoskeletal Medical History: Reports Hx Arthritis, Reports Hx Musculoskeleta l Trauma Past Surgical History: Reports: Hx Appendectomy - Immunizations Hx Diphtheria, Pertussis, Tetanus Vaccination: No Vertical Provider Document - CONSTITUTIONAL Agree With Documented VS: Yes Exam Limitations: No Limitations General Appearance: No Apparent Distress - INFECTION CONTROL TRAVEL OUTSIDE OF THE [place] IN LAST 30 DAYS: No - HEENT HEENT: Atraumatic, Normocephalic, PERRLA, Pharyngeal Tenderness, Pharyngeal Erythema. negative: Conjuctival Injection, Pharyngeal Exudate, Tympanic Membrane Red, Tympanic Membrane Bulging - NECK Neck: negative: Lymphadenopathy-Left, Lymphadenopathy-Right - RESPIRATORY Respiratory: No Respiratory Distress - CARDIOVASCULAR Cardiovascular: Regular Rate Pulses: Normal: Radial - MUSCULOSKELETAL/EXTREMETIES Musculoskeletal/Extremeties: FROM - NEURO Level of Consciousness: Awake, Alert, Appropriate - DERM Integumentary: Warm, Dry, No Rash Course - Re-evaluation Re-evalutation: 09/25/19 08:01 Patient's rapid strep test is negative. Culture has been sent. Patient has trace leukocytes in her urine, but has trichomonas noted. Urine will be sent for culture. Patient will be tested for COVID 19, as she does have loss of taste. She is in agreement with this plan. She agrees to self isolate. Patient vital signs are stable. No signs of sepsis noted. Follow-up precautions were given. Verbal discharge instructions were given to the patient. They verbalized understanding. They are stable for discharge. - Vital Signs Vital signs: Temp Pulse Resp BP Pulse Ox 98.4 F 69 20 126/80 H 100 09/25/19 07:00 09/25/19 07:00 09/25/19 07:00 09/25/19 07:00 09/25/19 07:00 Discharge - Discharge Clinical Impression: Body aches, Trichomonas infection Condition: Stable Disposition: HOME, SELF-CARE Additional Instructions: Your seen today in the emergency department for body aches. You have a trichomonas. Take Flagyl. Do not drink alcohol while you are on this medication. Make sure your partner is tested and treated for trichomonas. Do not have sex until you are completely done with your medication and your partner has been treated. With your primary care provider in regards to this visit. See if you can switch your control. You are also being tested for COVID-19. Please make sure you self isolate. If your test is positive, please self isolate for 2 weeks. Prescriptions: Metronidazole [Flagyl 500 mg Tablet] 500 mg PO Q6H #28 tablet Referrals: SHIRA VARGAS PA-C [Primary Care Provider] - Follow up in 1 week
[2019-09-25 07:38] LABS: APPEARANCE,URINE CLOUDY; BILIRUBIN,URINE NEGATIVE (NEGATIVE); COLOR,URINE YELLOW; GLUCOSE, URINE NEGATIVE (NEGATIVE); KETONES,URINE NEGATIVE (NEGATIVE); LEUKOCYTE ESTERASE,URINE TRACE (NEGATIVE); NITRITE,URINE NEGATIVE (NEGATIVE); PROTEIN,URINE NEGATIVE (NEGATIVE); URINE SPECIFIC GRAVITY 1.023
[2019-09-25 07:41] LABS: ADD MANUAL MICROSCOPIC YES
[2019-09-25 07:49] LABS: BACTERIA,URINE 1+ /HPF; TRICHOMONAS,URINE PRESENT
[2019-09-25] MEDS ORDERED: LIDOCAINE 1% INJ-PF (10 MG/ML) 30 ML SDV INJ ONE (07:57)
[2019-09-25] MEDS ORDERED: CEFTRIAXONE INJ 250 MG VIAL IM ONE (07:57)
[2019-09-25 09:07] VITALS: BP 122/78
== END 2019-09-25 09:08 | disposition home or self-care (01) ==
LOC: ER 04:25
DX: J02.9 Acute pharyngitis, unspecified (principal); A59.9 Trichomoniasis, unspecified; Z20.828 Contact with and (suspected) exposure to other viral communicable diseases
CPT/HCPCS: 99283; 96372; 36415; 87070; 87880; 87635; 81001; J3490; J0696; C9803

== ENCOUNTER 2019-12-04 04:32 | Emergency (ER) | payer BC ==
--- NOTE | 2019-12-04 06:15 | ER Document Report ---
ED Flu Like - General Chief Complaint: Nausea Stated Complaint: NAUSEA/SORE THROAT/BODY ACHE Time Seen by Provider: 12/04/19 06:02 Primary Care Provider: SHIRA VARGAS PA-C [Primary Care Provider] - Follow up as needed Notes: CHIEF COMPLAINT: Sore throat for 4 days HPI: 29-year-old female presenting to the emergency department complaining of sore throat with painful swallowing over the last 4 days. Reports multiple people at work and tested positive for strep throat. Is not concerned about COVID. Denies chest pain or cough, denies shortness of breath. Denies fever. Denies dysuria nausea or vomiting denies ROS: See HPI - all other systems were reviewed and are otherwise negative Constitutional: no fever Eyes: no drainage, no blurred vision ENT: no runny nose, + sore throat Cardiovascular: no chest pain Resp: no SOB, no cough GI: no vomiting, no diarrhea, no abdominal pain : no dysuria Integumentary: no rash Allergy: no hives Musculoskeletal: no extremity pain or swelling Neurological: no numbness/tingling, no weakness MEDICATIONS: I agree with the patient medications as charted by the RN. ALLERGIES: I agree with the allergies as charted by the RN. PAST MEDICAL HISTORY/PAST SURGICAL HISTORY: Reviewed and agree as charted by RN. SOCIAL HISTORY: Reviewed and agree as charted by RN. FAMILY HISTORY: No significant familial comorbid conditions directly related to patient complaint EXAM: Reviewed vital signs as charted by RN. CONSTITUTIONAL: Alert and oriented and responds appropriately to questions. Well-appearing; well-nourished HEAD: Normocephalic; atraumatic EYES: PERRL; Conjunctivae clear, sclerae non-icteric ENT: normal nose; no rhinorrhea; moist mucous membranes; pharynx without lesions noted, no uvula edema or deviation, no tonsillar hypertrophy, phonation normal NECK: Supple without meningismus; non-tender; no cervical lymphadenopathy, no masses CARD: RRR; no murmurs, no clicks, no rubs, no gallops; symmetric distal pulses RESP: Normal chest excursion without splinting or tachypnea; breath sounds clear and equal bilaterally; no wheezes, no rhonchi, no rales, pulse oximetry 100% on room air not hypoxic ABD/GI: Normal bowel sounds; non-distended; soft, non-tender, no rebound, no guarding; no palpable organomegaly or masses. BACK: The back appears normal and is non-tender to palpation, there is no CVA tenderness EXT: Normal ROM in all joints; non-tender to palpation; no cyanosis, no effusions, no edema SKIN: Normal color for age and race; warm; dry; good turgor; no acute lesions noted NEURO: Moves all extremities equally; Motor and sensory function intact PSYCH: The patient's mood and manner are appropriate. Grooming and personal hygiene are appropriate. MDM: 29-year-old female presenting with sore throat complaint over the last 4 days no fever. Will check strep test. TRAVEL OUTSIDE OF THE [place] IN LAST 30 DAYS: No - Related Data Allergies/Adverse Reactions: orange Allergy (Severe, Verified 09/25/19 04:31) No Known Drug Allergies Allergy (Verified 09/25/19 04:31) Past Medical History - Social History Smoking Status: Unknown if Ever Smoked Family History: Hypertension - Past Medical History Cardiac Medical History: Reports: Hx Hypertension - when Renal/ Medical History: Denies: Hx Peritoneal Dialysis Musculoskeletal Medical History: Reports Hx Arthritis, Reports Hx Musculoskeletal Trauma Past Surgical History: Reports: Hx Appendectomy - Immunizations Hx Diphtheria, Pertussis, Tetanus Vaccination: No Physical Exam - Vital signs Vitals: Temp Pulse Resp BP Pulse Ox 98.0 F 60 18 127/89 H 100 12/04/19 06:24 12/04/19 06:24 12/04/19 06:24 12/04/19 06:24 12/04/19 06:24 Course - Re-evaluation Re-evalutation: 12/04/19 07:02 Rapid strep is negative. Will treat as a viral etiology, does not want COVID testing. Given the possibility of exposure at work will add throat culture - Vital Signs Vital signs: Temp Pulse Resp BP Pulse Ox 98.0 F 60 18 127/89 H 100 12/04/19 06:24 12/04/19 06:24 12/04/19 06:24 12/04/19 06:24 12/04/19 06:24 Discharge - Discharge Clinical Impression: Throat pain Condition: Stable Disposition: HOME, SELF-CARE Additional Instructions: Rapid strep was negative. A throat culture has been added. Take Motrin Tylenol for discomfort consistently over the next 2 to 3 days. Salt water gargles to he lp with discomfort 3-4 times daily. Follow-up with your primary care provider for further evaluation and treatment call for appointment Referrals: SHIRA VARGAS PA-C [Primary Care Provider] - Follow up as needed
[2019-12-04 07:49] VITALS: BP 123/75
== END 2019-12-04 07:50 | disposition home or self-care (01) ==
LOC: ER 04:32
DX: J02.9 Acute pharyngitis, unspecified (principal); Z20.818 Contact with and (suspected) exposure to other bacterial communicable diseases; Z91.018 Allergy to other foods
CPT/HCPCS: 87070; 87880; 99283